=== PATIENT | male | born 1955 | race African-American/Black ===

== ENCOUNTER → 2017-12-24 | Outpatient (CLI) | payer MEDICARE ==
[~2017-12-24] MED LIST: REGADENOSON 0.4 MG/5 ML SYRINGE IV ONE
--- NOTE | 2017-12-24 11:06 | NM ---
EXAMINATION TYPE: NM stress lexiscan cardiolite DATE OF EXAM: 12/24/2017 COMPARISON: NONE HISTORY: Precordial chest pain and abnormal EKG. TECHNIQUE: After the intravenous administration of 10.12 mCi Tc 99m Sestamibi - Cardiolite resting S PECT images acquired 45 minutes post injection. The patient received 0.4mg Lexiscan, 26.9 mCi Tc 99m Sestamibi - Stress images obtained [address] injection FINDINGS: Review of stress and rest SPECT images demonstrates no distinct perfusion abnormality. Gated analysi s shows normal wall motion with an estimated left ventricular ejection fraction of 52 %. IMPRESSION: No scintigraphic evidence for reversible ischemia.
--- NOTE | 2017-12-24 19:10 | P.STRESS ---
- Stress Test Note Stress Test Results/Findings: Exam Performed: NM stress lexiscan cardiolite Exam Date: 12/24/17 Reason for Exam: Chest Pain Height: 6 ft 1 in Weight: 118.841 kg Protocol: Janeth Scan Stage: na Duration of Exercise: na Resting Heart Rate: 51 Resting Blood Pressure: 104/76 Maximum Achieved Heart Rate: 78 Maximum Achieved Blood Pressure: 121/84 85% PMHR: na 100% PMHR: na METS: na Technologist Comment: Stress Test Results/Findings: This is a 62-year-old gentleman with history of hypertension, smoking and family history being evaluated for symptoms of chest pain. Baseline EKG showed sinus rhythm with normal TX interval, QRS duration. Blood pressure at rest is 104 76 with pulse rate of 51. A standard dose of Lexiscan was infused. EKGs taken during and after infusion did not reveal any changes to suggest ischemia. Occasional PVCs were noted. Final impression: #1. Negative Lexiscan stress test #2. Reportedly per images to be given by the radiologist
--- NOTE | 2017-12-28 13:34 | EST ---
- Stress Test Note Stress Test Results/Findings: Exam Performed: NM stress lexiscan cardiolite Exam Date: 12/24/17 Reason for Exam: Chest Pain Height: 6 ft 1 in Weight: 118.841 kg Protocol: Janeth Scan Stage: na Duration of Exercise: na Resting Heart Rate: 51 Resting Blood Pressure: 104/76 Maximum Achieved Heart Rate: 78 Maximum Achieved Blood Pressure: 121/84 85% PMHR: na 100% PMHR: na METS: na Technologist Comment: Stress Test Results/Findings: This is a 62-year-old gentleman with history of hypertension, smoking and family history being evaluated for symptoms of chest pain. Baseline EKG showed sinus rhythm with normal [place] interval, QRS duration. Blood pressure at rest is 104 76 with pulse rate of 51. A standard dose of Lexiscan was infused. EKGs taken during and after infusion did not reveal any changes to suggest ischemia. Occasional PVCs were noted. Final impression: #1. Negative Lexiscan stress test #2. Reportedly per images to be given by the radiologist CANDIDOD
== END | disposition home or self-care (01) ==
LOC: RADNMMAIN 07:55
PROVIDERS: ATTEND Family Medicine
DX: R07.89 Other chest pain (principal)
CPT/HCPCS: 93017; 78452; A9500; J2785

== ENCOUNTER → 2018-01-05 | Outpatient (CLI) | payer MEDICARE ==
--- NOTE | 2018-01-05 14:09 | CTL ---
EXAMINATION TYPE: CT Low Dose Lung DATE OF EXAM ORDERED: 01/05/2018 COMPARISON: None HISTORY: . Low Dose CT Lung Screening CT DLP: 149.[address] CTDI: 3.9 mGy IV CONTRAST USED: None. SCREENING VISIT: First visit COMPARISON: None. TECHNIQUE: Low dose computed tomography scan was performed through the chest at 1 millimeter thick se ctions and reconstructed images in the coronal plane at [address] DIAGNOSTIC QUALITY: Satisfactory FINDINGS: LUNG NODULES: Not presentLeft lung: no nodules identified.Right lung: no nodules identified. LUNGS: COPD: Severity: None Fibrosis: Severity:None Lymph nodes: None Other findings: None RIGHT PLEURAL SPACE: Effusion: None Calcification: None Thickening: None Pneumothorax: None LEFT PLEURAL SPACE: Effusion: None Calcification: None Thickening: None Pneumothorax: None HEART: Heart Size: Mildly enlarged Coronary calcification: Mild Pericardial effusion: None Thoracic aorta: Ascending thoracic aorta is aneurysmal at 4.2 cm AP dimension. Mild atheromatous sahu ges seen. OTHER FINDINGS: Upper abdomen: Probable cyst dome of the liver. Bony thorax: Degenerative changes Supraclavicular region: No significant abnormalityOther: No significant abnormalityI IMPRESSION: 1. No distinct pulmonary nodules. 2. Ascending thoracic aortic aneurysm. FOLLOW UP CT CHEST RECOMMENDATION: Follow-up screening in one year CT LUNG RAD: Negative LUNG RAD CATEGORY 1
== END | disposition home or self-care (01) ==
LOC: RADCTMAIN 13:34
PROVIDERS: ATTEND Family Medicine
DX: Z12.2 Encounter for screening for malignant neoplasm of respiratory organs (principal); Z87.891 Personal history of nicotine dependence

== ENCOUNTER → 2018-06-02 | Outpatient (CLI) | payer MEDICARE ==
[2018-06-02 15:26] LABS: Potassium 4.5 mmol/L (3.5-5.1); Uric Acid 6.3 mg/dL (3.5-8.5)
== END ==
LOC: LABWHC1 14:46
PROVIDERS: ATTEND Family Medicine
DX: I10 Essential (primary) hypertension (principal); Z79.899 Other long term (current) drug therapy
CPT/HCPCS: 36415; 80051; 82565; 84520; 84550

== ENCOUNTER → 2018-10-26 | Outpatient (CLI) | payer MEDICARE ==
[2018-10-27 04:16] LABS: Anion Gap 9.5 mmol/L (4.00-12.00); Carbon Dioxide 24.5 mmol/L (21.6-31.8); Potassium 4.3 mmol/L (3.5-5.5)
[2018-10-27 05:05] LABS: Hemoglobin A1C 6.3 % (4.0-6.0)
== END | disposition home or self-care (01) ==
LOC: LABWHC1 15:35
PROVIDERS: ATTEND Family Medicine
DX: I10 Essential (primary) hypertension (principal); Z79.899 Other long term (current) drug therapy
CPT/HCPCS: 36415; 80051; 82565; 83036; 84443; 84520

== ENCOUNTER → 2019-01-17 | Outpatient (CLI) | payer MEDICARE ==
--- NOTE | 2019-01-17 14:32 | CTL ---
EXAMINATION TYPE: CT Low Dose Lung DATE OF EXAM ORDERED: 01/17/2019 HISTORY: Personal history of tobacco abuse. Lung cancer screening CT DLP: 141.[address] CTDI: 3.6 mGy Automated exposure control for dose reduction was used. SCREENING VISIT: Second COMPARISON: 01/05/2018 TECHNIQUE: Low dose computed tomography scan was performed through the chest at 1 mm thick sections a nd reconstructed images in the coronal plane at [address] DIAGNOSTIC QUALITY: Satisfactory FINDINGS: LUNG NODULES: Present, detailed below: There is a punctate 2 mm pulmonary nodule in the left lung apex laterally on series 4 image 43 that a ppears solid in nature. This is not well appreciated on the prior examination possibly due to slice s election given its very small size. No other sizable pulmonary nodules are appreciated. LUNGS: COPD: Severity: Very mild Fibrosis: Severity: None Lymph nodes: No adenopathy RIGHT PLEURAL SPACE: Effusion: None Calcification: None Thickening: None Pneumothorax: None LEFT PLEURAL SPACE: Effusion: None Calcification: None Thickening: None Pneumothorax: None HEART: Heart Size: Mildly enlarged Coronary calcification: Mild Pericardial effusion: None Aorta: Again there is mild ascending thoracic aorta aneurysmal dilatation measuring approximately 4.3 cm. OTHER FINDINGS: Upper abdomen: Right nephrectomy has been performed. Stable approximately 1.3 cm probable right hepat ic cyst. Bony thorax: Mild multilevel degenerative change Supraclavicular region: Unremarkable Other: Very small hiatal hernia. IMPRESSION: Solitary punctate left apical pulmonary nodule corresponds to a LUNG RADS 2-benign appear ance or behavior. Mild ascending thoracic aortic aneurysmal dilatation and probable stable 1.3 cm hep atic cyst are incidentally noted. FOLLOW UP CT CHEST RECOMMENDATION: Annual low dose CT is recommended. CT LUNG RAD: Lung-Rad 2 Benign Appearance or Behavior
== END ==
LOC: RADCTMAIN 13:37
PROVIDERS: ATTEND Family Medicine
DX: R91.1 Solitary pulmonary nodule (principal); Z87.891 Personal history of nicotine dependence

== ENCOUNTER → 2019-05-10 | Outpatient (CLI) | payer MEDICARE ==
[2019-05-10 12:30] LABS: Basophils % (A) 1 %; Eosinophils # (A) 0.2 k/uL (0-0.7); Eosinophils % (A) 3 %; HCT 45.5 % (39.0-53.0); HGB 14.2 gm/dL (13.0-17.5); Lymphocytes # (A) 2.9 k/uL (1.0-4.8); Lymphocytes % (A) 47 %; MCH 25.6 pg (25.0-35.0); MCHC 31.2 g/dL (31.0-37.0); MCV 81.9 fL (80.0-100.0); Monocytes # (A) 0.3 k/uL (0-1.0); Monocytes % (A) 5 %; Neutrophils # (A) 2.6 k/uL (1.3-7.7); Neutrophils % (A) 42 %; Platelet Count 306 k/uL (150-450); RBC 5.56 m/uL (4.30-5.90); RDW 15.5 % (11.5-15.5); WBC 6.2 k/uL (3.8-10.6)
[2019-05-10 12:31] LABS: Appearance,Urine Clear (Clear); Bilirubin,Urine Negative (Negative); Blood,Urine Negative (Negative); Color,Urine Yellow; Glucose,Urine (UA) Negative (Negative); Ketones,Urine Negative (Negative); Leukocyte Esterase,Urine Negative (Negative); Nitrite,Urine Negative (Negative); Protein,Urine Negative (Negative); Specific Gravity,Urine 1.018 (1.001-1.035); Urobilinogen,Urine <2.0 mg/dL (<2.0)
[2019-05-10 16:27] LABS: African American GFR (CKD) 66.8 (60.0-200.0); Albumin 4.3 g/dL (3.80-4.90); Albumin/Globulin Ratio 1.79 (1.60-3.17); Anion Gap 7.1 mmol/L (4.00-12.00); BUN/Creat Ratio 16.92 Ratio (12.00-20.00); Calcium 9.4 mg/dL (8.7-10.3); Carbon Dioxide 25.9 mmol/L (21.6-31.8); Chol/HDL Ratio 4.07; Globulin 2.4 g/dL (1.6-3.3); LDL Cholesterol,Calculated 125.8 mg/dL (0.0-131.0); Non-African American GFR(CKD) 57.7 (60.0-200.0); Potassium 4.1 mmol/L (3.5-5.5); Total Bilirubin 0.4 mg/dL (0.3-1.2); Total Protein 6.7 g/dL (6.2-8.2); VLDL Calculation 15.2 mg/dL (5.00-40.00)
[2019-05-10 19:55] LABS: Hemoglobin A1C 6.5 % (4.0-6.0)
== END | disposition home or self-care (01) ==
LOC: LABWHC1 11:49
PROVIDERS: ATTEND Family Medicine
DX: I10 Essential (primary) hypertension (principal); E55.9 Vitamin D deficiency, unspecified; Z79.899 Other long term (current) drug therapy
CPT/HCPCS: 36415; 80053; 80061; 81003; 82306; 82785; 83036; 83970; 84153; 84443; 85025

== ENCOUNTER → 2019-05-18 | Outpatient (CLI) | payer MEDICARE ==
[2019-05-18 23:30] LABS: African American GFR (CKD) 61.1 (60.0-200.0); Anion Gap 6.5 mmol/L (4.00-12.00); Carbon Dioxide 28.5 mmol/L (21.6-31.8); Potassium 4.3 mmol/L (3.5-5.5)
[2019-05-19 04:03] LABS: Hemoglobin A1C 6.5 % (4.0-6.0)
== END | disposition home or self-care (01) ==
LOC: LABWHC1 14:29
PROVIDERS: ATTEND Family Medicine
DX: E11.9 Type 2 diabetes mellitus without complications (principal); Z79.899 Other long term (current) drug therapy
CPT/HCPCS: 36415; 80051; 82565; 83036; 84520

== ENCOUNTER → 2019-07-12 | Outpatient (CLI) | payer MEDICARE ==
--- NOTE | 2019-07-13 05:50 | CT ---
EXAMINATION TYPE: CT angio chest DATE OF EXAM: 07/12/2019 COMPARISON: Low-dose CT 01/05/2018 HISTORY: 64-year-old male Thoracic aneurysm w/o mention of rupture. TECHNIQUE: Contiguous axial scanning of the chest performed without and with IV Contrast, patient inj ected with 80ml mL of Isovue 370. Coronal/sagittal MIP reconstructions performed. 3-D reconstructions generated on a dedicated independent workstation. CT DLP: 1641 mGycm Automated exposure control for dose reduction was used. FINDINGS: Heart normal size without pericardial effusion. Initial noncontrast images of the aorta show no evidence for acute intracranial hematoma. Postcontrast images show no evidence for dissection. Aortic root has motion but is estimated 4.1 cm, stable. Ascending aorta mildly aneurysmal at 4.3 cm, stable. Conventional arch vessel branching anatomy with very mild atherosclerotic arch calcifications. Upper descending thoracic aorta aneurysmal at 3.7 cm, unchanged. Descending thoracic aorta is mildly tortuous. Middescending thoracic aorta is ectatic at 2.9 cm, unchanged. Distal descending thoracic aorta borderline aneurysmal at 3.0 cm, unchanged. Scattered nonenlarged mediastinal and axillary lymph nodes. Trace bilateral gynecomastia. Minimal centrilobular emphysematous change. No consolidation or pleural effusion. Multiple hepatic cysts redemonstrated measuring up to 2.0 cm. Surgical clips in the right renal fossa from prior nephrectomy. Bones: No osseous destructive process. IMPRESSION: STABLE ANEURYSMAL THORACIC AORTA (ASCENDING 4.3 CM AND DESCENDING A 3.7 CM) COMPARED TO 01/05/2018.
== END | disposition home or self-care (01) ==
LOC: RADCTMAIN 16:23
PROVIDERS: ATTEND Thoracic Surgery (Cardiothoracic Vascular Surgery)
DX: I71.2 Thoracic aortic aneurysm, without rupture (principal)
CPT/HCPCS: 82565; 84520; 71275; 36415; Q9967

== ENCOUNTER → 2019-09-05 | Outpatient (CLI) | payer MEDICARE ==
[2019-09-05 21:14] LABS: Hemoglobin A1C 6.5 % (4.0-6.0)
[2019-09-05 21:37] LABS: African American GFR (CKD) 73.6 (60.0-200.0); Anion Gap 4.8 mmol/L (4.00-12.00); Carbon Dioxide 29.2 mmol/L (21.6-31.8); Non-African American GFR(CKD) 63.5 (60.0-200.0); Potassium 3.9 mmol/L (3.5-5.5)
== END | disposition home or self-care (01) ==
LOC: LABWHC1 11:24
PROVIDERS: ATTEND Family Medicine
DX: I10 Essential (primary) hypertension (principal); E11.9 Type 2 diabetes mellitus without complications; Z79.899 Other long term (current) drug therapy
CPT/HCPCS: 36415; 80051; 82105; 82565; 83036; 84520

== ENCOUNTER → 2020-02-21 | Outpatient (CLI) | payer MEDICARE ==
[2020-02-21 16:23] LABS: African American GFR (CKD) 60.7 (60.0-200.0); Albumin 4.3 g/dL (3.80-4.90); Albumin/Globulin Ratio 1.65 (1.60-3.17); BUN/Creat Ratio 15.71 Ratio (12.00-20.00); Calcium 9.5 mg/dL (8.7-10.3); Chol/HDL Ratio 3.43; Globulin 2.6 g/dL (1.6-3.3); LDL Cholesterol,Calculated 95.2 mg/dL (0.0-131.0); Non-African American GFR(CKD) 52.4 (60.0-200.0); Total Bilirubin 0.7 mg/dL (0.3-1.2); Total Protein 6.9 g/dL (6.2-8.2); VLDL Calculation 11.8 mg/dL (5.00-40.00)
== END | disposition home or self-care (01) ==
LOC: LABWHC1 10:56
PROVIDERS: ATTEND Family Medicine
DX: I10 Essential (primary) hypertension (principal); E11.9 Type 2 diabetes mellitus without complications
CPT/HCPCS: 36415; 80053; 80061; 83036

== ENCOUNTER → 2020-07-11 | Outpatient (CLI) | payer MEDICARE | END | disposition home or self-care (01) | LOC: RADCTMAIN 15:20 | PROVIDERS: ATTEND Thoracic Surgery (Cardiothoracic Vascular Surgery) | DX: I71.2 Thoracic aortic aneurysm, without rupture (principal) | CPT/HCPCS: 82565; 84520 ==

== ENCOUNTER → 2020-07-30 | Outpatient (CLI) | payer MEDICARE ==
--- NOTE | 2020-07-30 08:39 | CT ---
EXAMINATION TYPE: CT chest wo con DATE OF EXAM: 07/30/2020 COMPARISON: CTA chest July 12, 2019 HISTORY: Thoracic aneurysm CT DLP: 561.80 mGycm. Automated Exposure Control for Dose Reduction was Utilized. TECHNIQUE: CT scan of the thorax is performed without IV contrast. FINDINGS: LUNGS: Mild linear scarring medially left lung base redemonstrated. No suspicious focal groundglass o pacity or consolidation. No concerning nodules or masses. No pleural effusion or pneumothorax seen bi laterally. MEDIASTINUM: Lack of IV contrast is noted to limit evaluation for mediastinal and especially hilar ad enopathy. There are no definitive greater than 1 cm hilar or mediastinal lymph nodes. No cardiomega ly or pericardial effusion is seen. Ascending aorta measures up to 4.5 cm in diameter current study a xial image 29 at level of main pulmonary artery bifurcation perhaps slightly larger from prior study at 4.2 to 4.3 cm. Mild calcified plaque in the arch. Slight ectasia to the arch and proximal descendi ng aorta redemonstrated. Ectatic course noted. OTHER: Few simple appearing thin-walled cysts throughout the liver are redemonstrated. Surgical clips from right-sided nephrectomy redemonstrated. Slight scoliotic curvature on coronal images of the upp er to mid thoracic spine redemonstrated. IMPRESSION: There is 4.5 cm ascending aortic aneurysm slightly larger from 1 year ago.
== END | disposition home or self-care (01) ==
LOC: RADCTMAIN 07:26
PROVIDERS: ATTEND Family Medicine
DX: I71.2 Thoracic aortic aneurysm, without rupture (principal)
CPT/HCPCS: 71250

== ENCOUNTER → 2021-02-07 | Outpatient (CLI) | payer MEDICARE ==
[2021-02-07 18:55] LABS: Basophils # (A) 0.07 X 10*3/uL (0.00-0.10); Basophils % (A) 0.7 %; Eosinophils # (A) 0.16 X 10*3/uL (0.04-0.35); Eosinophils % (A) 1.7 %; HCT 48.5 % (39.6-50.0); HGB 15.1 g/dL (13.0-17.0); Lymphocytes # (A) 3.47 X 10*3/uL (0.90-5.00); Lymphocytes % (A) 35.9 %; MCH 25.2 pg (27.0-32.0); MCHC 31.1 g/dL (32.0-37.0); Mean Platelet Volume 11.7 fL (9.5-12.2); Monocytes # (A) 0.88 X 10*3/uL (0.20-1.00); Monocytes % (A) 9.1 %; Neutrophils # (A) 5.06 X 10*3/uL (1.80-7.70); Neutrophils % (A) 52.4 %; Platelet Count 301 X 10*3/uL (140-440); RBC 5.99 X 10*6/uL (4.40-5.60); WBC 9.66 X 10*3/uL (4.50-10.00)
[2021-02-07 23:06] LABS: African American GFR (CKD) 47.6 (60.0-200.0); Albumin 4.6 g/dL (3.80-4.90); Albumin/Globulin Ratio 1.77 (1.60-3.17); Anion Gap 10.9 mmol/L (4.00-12.00); BUN/Creat Ratio 14.12 Ratio (12.00-20.00); Calcium 9.6 mg/dL (8.7-10.3); Carbon Dioxide 24.1 mmol/L (21.6-31.8); Chol/HDL Ratio 4.5; Globulin 2.6 g/dL (1.6-3.3); LDL Cholesterol,Calculated 118.4 mg/dL (0.0-131.0); Non-African American GFR(CKD) 41.1 (60.0-200.0); Potassium 4.5 mmol/L (3.5-5.5); Total Bilirubin 0.4 mg/dL (0.2-1.2); Total Protein 7.2 g/dL (6.2-8.2); VLDL Calculation 28.6 mg/dL (5.00-40.00)
== END | disposition home or self-care (01) ==
LOC: LABWHC1 09:17
PROVIDERS: ATTEND Family Medicine
DX: E11.9 Type 2 diabetes mellitus without complications (principal); I10 Essential (primary) hypertension; Z79.899 Other long term (current) drug therapy
CPT/HCPCS: 36415; 80053; 80061; 83036; 84153; 85025

== ENCOUNTER → 2021-06-03 | Outpatient (CLI) | payer MEDICARE ==
[2021-06-03 23:00] LABS: Hemoglobin A1C 7.7 % (4.0-6.0)
[2021-06-04 01:26] LABS: African American GFR (CKD) 51.3 (60.0-200.0); Anion Gap 8.5 mmol/L (4.00-12.00); Carbon Dioxide 27.5 mmol/L (21.6-31.8); Non-African American GFR(CKD) 44.2 (60.0-200.0); Potassium 4.4 mmol/L (3.5-5.5)
== END | disposition home or self-care (01) ==
LOC: LABWHC1 13:33
PROVIDERS: ATTEND Family Medicine
DX: E11.9 Type 2 diabetes mellitus without complications (principal); I10 Essential (primary) hypertension; Z79.899 Other long term (current) drug therapy
CPT/HCPCS: 36415; 80051; 82565; 83036; 84520

== ENCOUNTER → 2022-02-19 | Outpatient (CLI) | payer MEDICARE ==
[2022-02-19 18:06] LABS: African American GFR (CKD) 59.8 (60.0-200.0); Anion Gap 10.7 mmol/L (10.00-18.00); Blood Urea Nitrogen 16.7 mg/dL (9.0-27.0); Carbon Dioxide 24.3 mmol/L (20.0-27.5); Non-African American GFR(CKD) 51.6 (60.0-200.0); Potassium 3.9 mmol/L (3.5-5.5)
== END | disposition home or self-care (01) ==
LOC: LABWHC1 11:51
PROVIDERS: ATTEND Family Medicine
DX: E11.9 Type 2 diabetes mellitus without complications (principal); I10 Essential (primary) hypertension
CPT/HCPCS: 36415; 80051; 82565; 83036; 84443; 84520

== ENCOUNTER → 2022-08-27 | Outpatient (CLI) | payer MEDICARE ==
[2022-08-27 18:28] LABS: African American GFR (CKD) 59.8 (60.0-200.0); Albumin 4.3 g/dL (3.8-4.9); Albumin/Globulin Ratio 1.3 (1.60-3.17); Anion Gap 10.8 mmol/L (10.00-18.00); BUN/Creat Ratio 11.14 Ratio (12.00-20.00); Blood Urea Nitrogen 15.6 mg/dL (9.0-27.0); Calcium 9.2 mg/dL (8.7-10.3); Carbon Dioxide 27.2 mmol/L (20.0-27.5); Globulin 3.3 g/dL (1.6-3.3); Non-African American GFR(CKD) 51.6 (60.0-200.0); Potassium 3.8 mmol/L (3.5-5.5); Prostate Specific Antigen 0.8 ng/mL (0.00-4.50); Total Bilirubin 0.2 mg/dL (0.30-1.20); Total Protein 7.6 g/dL (6.2-8.2)
[2022-08-27 19:39] LABS: Basophils # (A) 0.05 X 10*3/uL (0.00-0.10); Basophils % (A) 0.6 %; Eosinophils # (A) 0.19 X 10*3/uL (0.04-0.35); Eosinophils % (A) 2.4 %; HCT 45.2 % (39.6-50.0); HGB 14.6 g/dL (13.0-17.0); Immature Grans, Automated 0.3 %; Lymphocytes # (A) 2.91 X 10*3/uL (0.90-5.00); Lymphocytes % (A) 36.6 %; MCH 25.4 pg (27.0-32.0); MCHC 32.3 g/dL (32.0-37.0); MCV 78.6 fL (80.0-97.0); Mean Platelet Volume 10.4 fL (9.5-12.2); Monocytes # (A) 0.88 X 10*3/uL (0.20-1.00); Monocytes % (A) 11.1 %; NRBC Per 100 WBC 0 /100 WBCS (0.0-0.0); Neutrophils # (A) 3.91 X 10*3/uL (1.80-7.70); Platelet Count 270 X 10*3/uL (140-440); RBC 5.75 X 10*6/uL (4.40-5.60); RDW 18.2 % (11.5-14.5); WBC 7.96 X 10*3/uL (4.50-10.00)
== END | disposition home or self-care (01) ==
LOC: LABWHC1 14:03
PROVIDERS: ATTEND Family Medicine
DX: E11.9 Type 2 diabetes mellitus without complications (principal); Z79.899 Other long term (current) drug therapy
CPT/HCPCS: 36415; 80053; 82043; 82570; 83036; 84153; 84443; 85025

== ENCOUNTER → 2022-09-01 | Outpatient (CLI) | payer MEDICARE ==
--- NOTE | 2022-09-01 11:12 | US ---
EXAMINATION TYPE: US duplex aorta DATE OF EXAM: 09/01/2022 COMPARISON: NONE CLINICAL HISTORY: 67-year-old male I71.3 ABD AORTIC ANEURYSM. TECHNIQUE: Multiple sonographic images of the abdominal aorta are obtained. FINDINGS: EXAM MEASUREMENTS: Abdominal Aorta: Proximal: 3.1 x 2.7 cm Mid: 2.1 x 1.6 cm Distal: 1.9 x 1.9 cm Bifurcation: .6 x 1.2 cm .6 x 1.0 cm ANESTHESIOLOGY PHYSICIAN ASSISTANT NOTES: IMPRESSION: Mild aneurysm proximal abdominal aorta at 3.1 cm.
== END | disposition home or self-care (01) ==
LOC: RADUSWWP 07:14
PROVIDERS: ATTEND Family Medicine
DX: I71.30 Abdominal aortic aneurysm, ruptured, unspecified (principal)
CPT/HCPCS: 93979

== ENCOUNTER → 2023-12-21 | Outpatient (CLI) | payer MEDICARE ==
[2023-12-21 16:31] LABS: Basophils # (A) 0.06 X 10*3/uL (0.00-0.10); Basophils % (A) 0.8 %; Eosinophils # (A) 0.11 X 10*3/uL (0.04-0.35); Eosinophils % (A) 1.5 %; HCT 47.4 % (39.6-50.0); HGB 14.9 g/dL (13.0-17.0); Lymphocytes # (A) 3.26 X 10*3/uL (0.90-5.00); Lymphocytes % (A) 43.1 %; MCH 25.4 pg (27.0-32.0); MCHC 31.4 g/dL (32.0-37.0); MCV 80.7 FL (80.0-97.0); Mean Platelet Volume 10.7 FL (9.5-12.2); Monocytes # (A) 0.83 X 10*3/uL (0.20-1.00); NRBC Per 100 WBC 0 X 10*3/uL (0.00-0.01); Neutrophils # (A) 3.29 X 10*3/uL (1.80-7.70); Neutrophils % (A) 43.3 %; Platelet Count 278 X 10*3/uL (140-440); RBC 5.87 X 10*6/uL (4.40-5.60); RDW 18.1 % (11.5-14.5); WBC 7.57 X 10*3/uL (4.50-10.00)
[2023-12-21 16:54] LABS: BUN/Creat Ratio 12.62 Ratio (12.00-20.00); Blood Urea Nitrogen 16.4 mg/dL (9.0-27.0); Chol/HDL Ratio 3.49 Ratio; Glucose 121 mg/dL (70-110); LDL Cholesterol,Calculated 81.5 mg/dL (0.0-131.0); VLDL Calculation 14.14 mg/dL (5.00-40.00)
[2023-12-21 16:55] LABS: ALT 24 U/L (10-49); AST 11 U/L (14-35); Albumin 4.3 g/dL (3.8-4.9); Albumin/Globulin Ratio 1.43 Ratio (1.60-3.17); Alkaline Phosphatase 113 U/L (41-126); Calcium 9.7 mg/dL (8.7-10.3); Carbon Dioxide 27.1 mmol/L (21.6-31.8); Chloride 105 mmol/L (96-109); Potassium 4.7 mmol/L (3.5-5.5); Prostate Specific Antigen 0.76 ng/mL (0.000-4.500); Sodium 142 mmol/L (135-145); Total Bilirubin 0.3 mg/dL (0.3-1.2); Total Protein 7.3 g/dL (6.2-8.2)
== END | disposition home or self-care (01) ==
LOC: LABWHC1 08:53
PROVIDERS: ATTEND Family Medicine
DX: Z00.00 Encounter for general adult medical examination without abnormal findings (principal); I10 Essential (primary) hypertension; E11.9 Type 2 diabetes mellitus without complications; E55.9 Vitamin D deficiency, unspecified; R97.20 Elevated prostate specific antigen [PSA]; Z79.899 Other long term (current) drug therapy
CPT/HCPCS: 36415; 80053; 80061; 82043; 82306; 82570; 82784; 83036; 84153; 84443; 85025; 86140

== ENCOUNTER 2024-03-04 15:12 | Emergency (ER) | payer MEDICARE ==
--- NOTE | 2024-03-04 15:48 | ED ---
General Adult HPI - General Chief complaint: Eye Problems Stated complaint: eye issue Time Seen by Provider: 03/04/24 15:46 Source: patient Mode of arrival: ambulatory Limitations: no limitations - History of Present Illness Initial comments: Patient presents to the ED with his friend for evaluation. Patient states that he has bilateral eye redness and irritation that is getting worse. Patient states that he initially developed left eye redness and irritation about 3 weeks ago. Patient states that his PCP started him on some sort of eyedrops (patient is unsure of what type of eyedrops these were) at that time. Patient states that his eye redness became worse and spread to his right eye, so he saw an eye doctor 4 days ago. Patient states that the eye doctor started him on tobramycin/dexamethasone eyedrops, which he has been applying for the past 4 days. Patient states that his symptoms are not improving, so he has come to the ED today. Patient is complaining of having bilateral sticky eye discharge, irritation, redness and light sensitivity. Patient denies having any significant "pain". Patient denies loss of vision or visual changes, eye trauma, recent welding, foreign body sensation or known foreign body entering his eye, contact lens use, history of glaucoma or other significant eye disorders, fever or chills, headache, cough or cold symptoms, nausea or vomiting, dyspnea, dizziness, or any other symptoms or complaints. - Related Data Home Medications Medication Instructions Recorded Confirmed ALPRAZolam [Xanax] 1 mg PO DAILY PRN 12/04/22 12/04/22 Atorvastatin [Lipitor] 10 mg PO HS 12/04/22 12/04/22 Dapagliflozin Propanediol [Farxiga] 10 mg PO DAILY 12/04/22 12/04/22 Dulaglutide [Trulicity] 1.5 mg SQ TH 12/04/22 12/04/22 FLUoxetine HCL [PROzac] 20 mg PO DAILY 12/04/22 12/04/22 amLODIPine [Norvasc] 5 mg PO DAILY 12/04/22 12/04/22 hydroCHLOROthiazide [Hydrodiuril] 25 mg PO DAILY 12/04/22 12/04/22 Previous Rx's Medication Instructions Recorded Lidocaine 5% Patch [Lidoderm] 1 patch TOPICAL DAILY 15 Days #15 12/04/22 patch Moxifloxacin HCl [Moxifloxacin 1 drop BOTH EYES TID 7 Days #3 ml 03/04/24 0.5%] Allergies Allergy/AdvReac Type Severity Reaction Status Date / Time No Known Allergies Allergy Verified 12/04/22 15:14 Review of Systems ROS Statement: Those systems with pertinent positive or pertinent negative responses have been documented in the HPI. ROS Other: All systems not noted in ROS Statement are negative. Past Medical History Past Medical History: Diabetes Mellitus, Hypertension Additional Past Surgical History / Comment(s): Kidney Past Psychological History: No Psychological Hx Reported Smoking Status: Current every day smoker Past Alcohol Use History: Occasional Past Drug Use History: Marijuana General Exam Limitations: no limitations General appearance: alert, in no apparent distress Head exam: Present: atraumatic, normocephalic Eye exam: Present: PERRL, EOMI, other (Bilateral conjunctival injection; right eye visual acuity 20/50, left eye visual acuity 20/40; no corneal fluorescein uptake or foreign body is noted on Frost lamp examination). Absent: periorbital swelling, periorbital tenderness ENT exam: Present: normal oropharynx Respiratory exam: Present: normal lung sounds bilaterally. Absent: respiratory distress, wheezes, rales, rhonchi, stridor Cardiovascular Exam: Present: regular rate, normal rhythm, normal heart sounds Neurological exam: Present: alert, oriented X3 Psychiatric exam: Present: normal affect Skin exam: Present: warm, dry, normal color Course Vital Signs 03/04/24 15:14 Temperature 98.1 F Pulse Rate 69 Respiratory 18 Rate Blood Pressure 148/91 O2 Sat by Pulse 96 Oximetry Medical Decision Making - Medical Decision Making Was pt. sent in by a medical professional or institution (, PA, [employer], urgent care, hospital, or prison...) When possible be specific @ -No Did you speak to anyone other than the patient for history (EMS, parent, family, police, friend...)? What history was obtained from this source @ -No Did you review nursing and triage notes (agree or disagree)? Why? @ -I reviewed and agree with nursing and triage notes Were old charts reviewed (outside hosp., previous admission, EMS record, old EKG, old radiological studies, urgent care reports/EKG's, prison records)? Report findings @ -No old charts were reviewed Differential Diagnosis (chest pain, altered mental status, abdominal pain women, abdominal pain men, vaginal bleeding, weakness, fever, dyspnea, syncope, headache, dizziness, GI bleed, back pain, seizure, CVA, palpatations, mental health, musculoskeletal)? @ -Conjunctivitis, keratitis, iritis, eye foreign body, scleritis, uveitis, eye disease EKG interpreted by me (3pts min.). @ -None done X-rays interpreted by me (1pt min.). @ -None done CT interpreted by me (1pt min.). @ -None done U/S interpreted by me (1pt. min.). @ -None done What testing was considered but not performed or refused? (CT, X-rays, U/S, labs)? Why? @ -None What meds were considered but not given or refused? Why? @ -None Did you discuss the management of the patient with other professionals (professionals i.e. , PA, [employer], lab, RT, psych nurse, social sciences department chair, corporate lawyer, teacher, chief lending officer, returned case inspector)? Give summary @ -No Was smoking cessation discussed for >3mins.? @ -No Was critical care preformed (if so, how long)? @ -No Were there social determinants of health that impacted care today? How? (Homelessness, low income, unemployed, alcoholism, drug addiction, transportation, low edu. Level, literacy, decrease access to med. care, fdc, rehab)? @ -No Was there de-escalation of care discussed even if they declined (Discuss DNR or withdrawal of care, Hospice)? DNR status @ -No What co-morbidities impacted this encounter? (DM, HTN, Smoking, COPD, CAD, Cancer, CVA, ARF, Chemo, Hep., AIDS, mental health diagnosis, sleep apnea, morbid obesity)? @ -None Was patient admitted / discharged? Hospital course, mention meds given and route, prescriptions, significant lab abnormalities, going to OR and other pertinent info. @ -Patient is noted to have bilateral conjunctival injection and reports having bilateral sticky eye drainage. Patient has no corneal fluorescein uptake or FB noted on Frost lamp examination. Patient's exam and symptoms are most consistent with bilateral conjunctivitis. Given the patient reports taking tobramycin eyedrops for the past 4 days without improvement, I feel it would be appropriate to change the patient's antibiotics from tobramycin to moxifloxacin at this time (a prescription was provided). Patient states that he has an appointment scheduled to see his ladies attendant (Dr. Nugent) in 3 days for reevaluation. Patient was counseled about conjunctivitis and preventing spread. The patient was clearly explained return and follow-up instructions. Patient was instructed to have a low threshold for return to the emergency department should he develop significant pain, visual changes, a fever, or new or worsening symptoms. Will discharge patient home with his friend at this time. Patient feels comfortable with this plan. Undiagnosed new problem with uncertain prognosis? @ -No Drug Therapy requiring intensive monitoring for toxicity (Heparin, Nitro, Insulin, Cardizem)? @ -No Were any procedures done? @ -No Diagnosis/symptom? @ -Bilateral conjunctivitis Acute, or Chronic, or Acute on Chronic? @ -Default Uncomplicated (without systemic symptoms) or Complicated (systemic symptoms)? @ -Default Side effects of treatment? @ -No Exacerbation, Progression, or Severe Exacerbation? @ -No Poses a threat to life or bodily function? How? (Chest pain, [place], MA, pneumonia, PE, COPD, DKA, ARF, appy, cholecystitis, CVA, Diverticulitis, Homicidal, Suicidal, threat to staff... and all critical care pts) @ -No Disposition Clinical Impression: Bilateral conjunctivitis Disposition: HOME SELF-CARE Condition: Stable Instructions (If sedation given, give patient instructions): Conjunctivitis (ED) Prescriptions: Moxifloxacin HCl [Moxifloxacin 0.5%] 1 drop BOTH EYES TID 7 Days #3 ml Is patient prescribed a controlled substance at d/c from ED?: No Referrals: Davonte Mills MD [Primary Care Provider] - 1-2 days Ghassan Nugent MD [STAFF PHYSICIAN] - 1-2 days Time of Disposition: 16:25
[2024-03-04 15:50] VITALS: RESP 18; TEMP 98.1
[2024-03-04] MEDS: PROPARACAINE 0.5% OPHTH DROPS 15 ML BTL BOTH EYES STA (15:56)
[2024-03-04] MEDS: FLUORESCEIN STRIPS 1 MG STRIP BOTH EYES ONE (15:57)
[2024-03-04 17:25] VITALS: BP 142/80; PULSE 76
== END 2024-03-04 16:38 | disposition home or self-care (01) ==
LOC: EC 15:12
DX: H10.9 Unspecified conjunctivitis (principal); F17.200 Nicotine dependence, unspecified, uncomplicated; F12.90 Cannabis use, unspecified, uncomplicated
CPT/HCPCS: 99283

== ENCOUNTER 2024-03-06 14:53 | Inpatient (IN) | payer MEDICARE, OTHER ==
[2024-03-06 15:45] LABS: Basophils % (A) 1 %; Eosinophils # (A) 0.2 k/uL (0-0.7); Eosinophils % (A) 2 %; HCT 46.9 % (39.0-53.0); HGB 14.4 gm/dL (13.0-17.5); Lymphocytes # (A) 2.7 k/uL (1.0-4.8); Lymphocytes % (A) 36 %; MCH 24.7 pg (25.0-35.0); MCHC 30.8 g/dL (31.0-37.0); MCV 80.3 fL (80.0-100.0); Mean Platelet Volume 7.3; Monocytes # (A) 0.4 k/uL (0-1.0); Monocytes % (A) 6 %; Neutrophils % (A) 54 %; Platelet Count 331 k/uL (150-450); RBC 5.83 m/uL (4.30-5.90); WBC 7.5 k/uL (3.8-10.6)
--- NOTE | 2024-03-06 15:50 | ED ---
General Adult HPI - General Chief complaint: Eye Problems Stated complaint: Eye issues Time Seen by Provider: 03/06/24 15:07 Source: patient, RN notes reviewed Mode of arrival: ambulatory Limitations: no limitations - History of Present Illness Initial comments: 69 year old male presents to the emergency department for evaluation of eye issues. Patient reports that this started around 2 weeks ago. He notes that he saw his eye doctor, Dr. Kohli, around 6 days ago. He was started on Tobradex eye drops at the time. He presented to our ED following this 2 days ago with worsening symptoms. His eye drops were changed at that time. He comes in today for worsening symptoms. He reports bilateral eye pain, drainage, redness, swelling. He also admits to pain with eye movements. Admits to blurry vision. He reports that all of his symptoms are bilateral but much worse on the left. PMH includes DM, HTN. - Related Data Home Medications Medication Instructions Recorded Confirmed ALPRAZolam [Xanax] 1 mg PO HS 12/04/22 03/06/24 Atorvastatin [Lipitor] 10 mg PO DAILY 12/04/22 03/06/24 Dapagliflozin Propanediol [Farxiga] 10 mg PO DAILY 12/04/22 03/06/24 FLUoxetine HCL [PROzac] 20 mg PO HS 12/04/22 03/06/24 amLODIPine [Norvasc] 5 mg PO DAILY 12/04/22 03/06/24 hydroCHLOROthiazide [Hydrodiuril] 25 mg PO DAILY 12/04/22 03/06/24 Budesonide/Glycopyr/Formoterol 2 puff INHALATION RT-BID 03/06/24 03/06/24 [Breztri Aerosphere Inhaler] Cholecalciferol (Vitamin D3) 50 mcg PO DAILY 03/06/24 03/06/24 [Vitamin D3 (50 Mcg = 2000 Iu)] Cyanocobalamin (Vitamin B-12) 1,000 mcg PO DAILY 03/06/24 03/06/24 [Vitamin B-12] Furosemide [Lasix] 20 mg PO DAILY 03/06/24 03/06/24 Ipratropium-Albuterol Nebulize 3 ml INHALATION RT-BID 03/06/24 03/06/24 [Duoneb 0.5 mg-3 mg/3 ml Soln] Lansoprazole [Prevacid] 30 mg PO DAILY 03/06/24 03/06/24 Mirtazapine [Remeron] 15 mg PO HS 03/06/24 03/06/24 Potassium Chloride ER [K-Dur 10] 10 meq PO DAILY 03/06/24 03/06/24 Zinc Gluconate [Zinc] 50 mg PO DAILY 03/06/24 03/06/24 Allergies Allergy/AdvReac Type Severity Reaction Status Date / Time No Known Allergies Allergy Verified 03/06/24 19:03 Review of Systems ROS Statement: Those systems with pertinent positive or pertinent negative responses have been documented in the HPI. ROS Other: All systems not noted in ROS Statement are negative. Past Medical History Past Medical History: Diabetes Mellitus, Hypertension Additional Past Surgical History / Comment(s): Kidney Past Psychological History: No Psychological Hx Reported Smoking Status: Current every day smoker Past Alcohol Use History: Occasional Past Drug Use History: Marijuana General Exam Limitations: no limitations General appearance: alert, in no apparent distress Head exam: Present: atraumatic, normocephalic, normal inspection Eye exam: Present: PERRL, EOMI, conjunctival injection, other (chemosis to left eye, IOP 7 bilaterally) ENT exam: Present: normal exam, mucous membranes moist Respiratory exam: Present: normal lung sounds bilaterally. Absent: respiratory distress, wheezes, rales, rhonchi, stridor Cardiovascular Exam: Present: regular rate, normal rhythm, normal heart sounds. Absent: systolic murmur, diastolic murmur, rubs, gallop, clicks Extremities exam: Present: normal inspection, full ROM, normal capillary refill. Absent: tenderness, pedal edema, joint swelling, calf tenderness Neurological exam: Present: alert, oriented X3 Psychiatric exam: Present: normal affect, normal mood Skin exam: Present: warm, dry, intact, normal color. Absent: rash Course Vital Signs 03/06/24 03/06/24 03/06/24 14:54 18:00 19:15 Temperature 98.7 F 98.1 F 98.4 F Pulse Rate 65 78 86 Respiratory 16 18 18 Rate Blood Pressure 130/84 136/78 136/81 O2 Sat by Pulse 99 99 99 Oximetry Medical Decision Making - Medical Decision Making Was pt. sent in by a medical professional or institution (, PA, CUSTOMER EQUIPMENT ENGINEER, urgent care, hospital, or fpc...) When possible be specific @ -[No] Did you speak to anyone other than the patient for history (EMS, parent, family, police, friend...)? What history was obtained from this source @ -[No] Did you review nursing and triage notes (agree or disagree)? Why? @ -[I reviewed and agree with nursing and triage notes] Were old charts reviewed (outside hosp., previous admission, EMS record, old EKG, old radiological studies, urgent care reports/EKG's, fpc records)? Report findings @ -[No old charts were reviewed] Differential Diagnosis (chest pain, altered mental status, abdominal pain women, abdominal pain men, vaginal bleeding, weakness, fever, dyspnea, syncope, headache, dizziness, GI bleed, back pain, seizure, CVA, palpatations, mental health, musculoskeletal)? @ -[Conjunctivitis, iritis, scleritis, orbital cellulitis, preseptal cellulitis, this is not all inclusive] EKG interpreted by me (3pts min.). @ -[none] X-rays interpreted by me (1pt min.). @ -[None done] CT interpreted by me (1pt min.). @ -[CT orbits shows asymmetric mild fat stranding changes in the intraconal and extraconal fat of the left, hazy appearance around globes bilaterally] U/S interpreted by me (1pt. min.). @ -[None done] What testing was considered but not performed or refused? (CT, X-rays, U/S, labs)? Why? @ -[None] What meds were considered but not given or refused? Why? @ -[None] Did you discuss the management of the patient with other professionals (professionals i.e. , PA, CUSTOMER EQUIPMENT ENGINEER, lab, RT, psych nurse, community mental health social worker, radio station operator, teacher, precinct commanding officer, behavioral health case manager)? Give summary @ -[Case discussed with Dr. Davonte Mills who is accepting of the admission with ophthalmology and ID on consult. ] Was smoking cessation discussed for >3mins.? @ -[No] Was critical care preformed (if so, how long)? @ -[No] Were there social determinants of health that impacted care today? How? (Homelessness, low income, unemployed, alcoholism, drug addiction, transportation, low edu. Level, literacy, decrease access to med. care, nursing home, rehab)? @ -[No] Was there de-escalation of care discussed even if they declined (Discuss DNR or withdrawal of care, Hospice)? DNR status @ -[No] What co-morbidities impacted this encounter? (DM, HTN, Smoking, COPD, CAD, Cancer, CVA, ARF, Chemo, Hep., AIDS, mental health diagnosis, sleep apnea, morbid obesity)? @ -[None] Was patient admitted / discharged? Hospital course, mention meds given and route, prescriptions, significant lab abnormalities, going to OR and other pertinent info. @ -[admitted. Patient presented to the emergency department for bilateral eye issue, worse on the left. Visual acuity obtained, 20/40 on the left, 20/50 on the right. Intraocular pressure 7 bilaterally. Laboratory studies obtained which shows normal WBC, slightly elevated CRP. CT of the orbits was obtained. There are changes concerning for orbital cellulitis. Patient started on vancomycin and Zosyn. Case was discussed with Dr. Mills. Patient will be admitted with IV antibiotics, ophthalmology and infectious disease will be consulted. Patient understanding agreeable plan. Patient stable at time of admission. Case discussed with Dr. Oliva who also evaluated the patient.] Undiagnosed new problem with uncertain prognosis? @ -[No] Drug Therapy requiring intensive monitoring for toxicity (Heparin, Nitro, Insulin, Cardizem)? @ -[No] Were any procedures done? @ -[No] Diagnosis/symptom? @ -[orbital cellulitis] Acute, or Chronic, or Acute on Chronic? @ -acute Uncomplicated (without systemic symptoms) or Complicated (systemic symptoms)? @ -complicated Side effects of treatment? @ -[No] Exacerbation, Progression, or Severe Exacerbation? @ -[No] Poses a threat to life or bodily function? How? (Chest pain, [place], [place], pneumonia, PE, COPD, DKA, ARF, appy, cholecystitis, CVA, Diverticulitis, Homicidal, Suicidal, threat to staff... and all critical care pts) @ -[threat to sight] - Lab Data Result diagrams: 03/06/24 15:37 03/06/24 15:37 Lab Results 03/06/24 03/06/24 Range/Units 15:37 15:37 WBC 7.5 (3.8-10.6) k/uL RBC 5.83 (4.30-5.90) m/uL Hgb 14.4 (13.0-17.5) gm/dL Hct 46.9 (39.0-53.0) % MCV 80.3 (80.0-100.0) fL MCH 24.7 L (25.0-35.0) pg MCHC 30.8 L (31.0-37.0) g/dL RDW 16.0 H (11.5-15.5) % Plt Count 331 (150-450) k/uL MPV 7.3 Neutrophils % 54 % Lymphocytes % 36 % Monocytes % 6 % Eosinophils % 2 % Basophils % 1 % Neutrophils # 4.0 (1.3-7.7) k/uL Lymphocytes # 2.7 (1.0-4.8) k/uL Monocytes # 0.4 (0-1.0) k/uL Eosinophils # 0.2 (0-0.7) k/uL Basophils # 0.0 (0-0.2) k/uL ESR 87 H (0-20) mm/Hr Sodium 137 (137-145) mmol/L Potassium 4.6 (3.5-5.1) mmol/L Chloride 106 (98-107) mmol/L Carbon Dioxide 24 (22-30) mmol/L Anion Gap 7 mmol/L BUN 13 (9-20) mg/dL Creatinine 1.14 (0.66-1.25) mg/dL Est GFR (CKD-EPI)AfAm 76 (>60 ml/min/1.73 sqM) Est GFR (CKD-EPI)NonAf 66 (>60 ml/min/1.73 sqM) Glucose 119 H (74-99) mg/dL Calcium 8.8 (8.4-10.2) mg/dL Total Bilirubin 0.7 (0.2-1.3) mg/dL AST 26 (17-59) U/L ALT 24 (4-49) U/L Alkaline Phosphatase 107 (38-126) U/L C-Reactive Protein 4.2 H (<1.0) mg/dL Total Protein 7.3 (6.3-8.2) g/dL Albumin 3.9 (3.5-5.0) g/dL Disposition Clinical Impression: Orbital cellulitis Disposition: ADMITTED IP TO THIS HOSP Condition: Stable Is patient prescribed a controlled substance at d/c from ED?: No
[2024-03-06 15:57] LABS: ALT 24 U/L (4-49); African American GFR (CKD) 76 (>60 ml/min/1.73 sqM); Albumin 3.9 g/dL (3.5-5.0); Anion Gap 7 mmol/L; Blood Urea Nitrogen 13 mg/dL (9-20); C Reactive Protein 4.2 mg/dL (<1.0); Calcium 8.8 mg/dL (8.4-10.2); Carbon Dioxide 24 mmol/L (22-30); Chloride 106 mmol/L (98-107); Glucose 119 mg/dL (74-99); Non-African American GFR(CKD) 66 (>60 ml/min/1.73 sqM); Sodium 137 mmol/L (137-145); Total Bilirubin 0.7 mg/dL (0.2-1.3); Total Protein 7.3 g/dL (6.3-8.2)
[2024-03-06] MEDS: PROPARACAINE 0.5% OPHTH DROPS 15 ML BTL BOTH EYES STA (15:59)
[2024-03-06 16:01] LABS: AST 26 U/L (17-59); Alkaline Phosphatase 107 U/L (38-126); Potassium 4.6 mmol/L (3.5-5.1)
[2024-03-06] MEDS: FLUORESCEIN STRIPS 1 MG STRIP BOTH EYES ONE (16:27)
--- NOTE | 2024-03-06 17:57 | CT ---
EXAMINATION TYPE: CT orbits w con CT DLP: 362.8 mGycm, Automated exposure control for dose reduction was used. DATE OF EXAM: 03/06/2024 4:48 PM COMPARISON: 07/21/2010. CLINICAL INDICATION:Male, 69 years old with history of eye pain, swelling; PHH, left eye pain and swe lling TECHNIQUE: Orbits: Axial CT with coronal and sagittal reformats through the orbits. No IV or oral contrast was u tilized. Findings: Orbital Contents: * Globes: Intact mild haziness around the globes bilaterally. * Preseptal Tissues: Normal. * Intraconal Structures: Normal. * Extraconal Structures and Lacrimal Glands: There is some mild Fat stranding changes thought to be present within the left extraconal and intraconal fat series 201 image 34 and series 202 image 68 * Orbital [place]: Normal. Sella Turcica and Cavernous Sinuses: The sella turcica and cavernous sinus regions are intact and sym metric. Visualized Brain Parenchyma: Normal. Paranasal Sinuses and Surrounding Structures: The paranasal sinuses are intact. The mastoid air cells and skull base is intact. Musculoskeletal: No evidence of fracture. Other: Soft tissues are within normal limits. IMPRESSION: 1. There are some asymmetric mild fat stranding changes in the intraconal and extraconal fat on the left correlate for orbital cellulitis. 2. Additionally there is hazy appearance around the globes bilaterally, correlate with ophthalmic ex am.
[2024-03-06] MEDS ORDERED: VANCOMYCIN IV PER PHARMACY 1 EACH MISC MISCELLANE PRN (18:29)
[2024-03-06] MEDS: PIPERACILLIN-TAZOBACTAM 3.375 GM in SODIUM CHLORIDE 0.9% 100 ML IVPB STA (18:39)
[2024-03-06] MEDS ORDERED: NALOXONE 0.4 MG/ML 1 ML VIAL IV PRN (19:39)
[2024-03-06] MEDS ORDERED: MORPHINE SULFATE 4 MG/ML SYRINGE IV PRN (19:39)
[2024-03-06] MEDS: diphenhydrAMINE 50 MG/ML 1 ML VIAL IVP STA (19:57)
[2024-03-06] MEDS: METOCLOPRAMIDE 5 MG/ML 2 ML VIAL IVP STA (19:57)
[2024-03-06] MEDS: KETOROLAC 15 MG/ML 1 ML VIAL IVP STA (19:57)
[2024-03-06] MEDS: VANCOMYCIN 1,750 MG in SODIUM CHLORIDE 0.9% 500 ML 500 ML IVPB STA (20:00)
[2024-03-06] MEDS: SODIUM CHLORIDE 0.9% 1,000 ML IV SCH (20:10)
[2024-03-06] MEDS: ALPRAZolam 1 MG TAB PO SCH (21:34)
[2024-03-06] MEDS: FLUoxetine HCL 20 MG CAP PO SCH (21:34)
[2024-03-06] MEDS: MIRTAZAPINE 15 MG TAB PO SCH (21:34)
[2024-03-06 21:56] LABS: Glucose,Whole Blood 236 mg/dL (70-110)
[2024-03-06 22:35] LABS: Erythrocyte Sedimentation Rate 87 mm/Hr (0-20)
[2024-03-07] MEDS: PIPERACILLIN-TAZOBACTAM 3.375 GM in SODIUM CHLORIDE 0.9% 100 ML IVPB SCH (00:11)
--- NOTE | 2024-03-07 00:46 | HP ---
HISTORY AND PHYSICAL A 69-year-old male, came in 2 weeks ago. He saw Dr. Kohli 6 days ago. He has been on TobraDex at home and another set of eye drops and his eyes got worse with swelling around the eye. Admits to some blurry vision. We are going to get ophthalmologic consult to benefit periorbital cellulitis. HOME MEDICINES: Include, 1. mg daily. 2. Lipitor 10 daily. 3. Farxiga 10 daily. 4. Prozac 20 daily. 5. Norvasc 5 daily. 6. HydroDIURIL 25 daily. 7. Breztri 2 puffs b.i.d. 8. Vitamin D3 daily. 9. Lasix 20 daily. 10.DuoNeb q.i.d. 11.Remeron 15 at night. 12.Prevacid 30 daily. 13.K-Dur 10 mEq daily. 14.Zinc 50 daily. ALLERGIES: Negative. REVIEW OF SYSTEMS: 14-point review of systems otherwise negative. PAST MEDICAL HISTORY: Diabetes mellitus, hypertension. Current everyday smoker. Uses marijuana. PHYSICAL EXAMINATION: VITAL SIGNS: Reviewed. HEENT: Normocephalic, atraumatic. He has some redness, swelling, conjunctival irritation around his eyes with swelling and redness. LUNGS: Decreased breath sounds x4. HEART: S1, S2. EXTREMITIES: No cyanosis, clubbing, edema. NEUROLOGIC: Cranial nerves intact. PSYCH: Fair mood and affect. VITAL SIGNS: Blood pressure 130s over 70s, O2 99, temp 98.7, pulse 60s to 70s, respiratory rate 16-18. White count 7.5, hemoglobin 14.4. ASSESSMENT: Orbital cellulitis, started him on IV antibiotics. Get infectious disease consult as well as tailor women's garment alteration. Continue home IV antibiotics. Prognosis guarded. MMODL / IJN: [id number] /
[2024-03-07 06:16] LABS: Glucose,Whole Blood 90 mg/dL (70-110)
[2024-03-07] MEDS: POTASSIUM CHLORIDE ER 10 MEQ TAB.ER.PRT PO SCH (08:16)
[2024-03-07] MEDS: VANCOMYCIN 1,750 MG in SODIUM CHLORIDE 0.9% 500 ML 500 ML IVPB SCH (08:16)
[2024-03-07] MEDS: ZINC SULFATE 220 MG CAP PO SCH (08:16)
[2024-03-07] MEDS: CHOLECALCIFEROL 25 MCG (1000 IU) TABLET PO SCH (08:16)
[2024-03-07] MEDS: ATORVASTATIN 10 MG TAB PO SCH (08:16)
[2024-03-07] MEDS: PANTOPRAZOLE 40 MG TABLET PO SCH (08:16)
[2024-03-07] MEDS: CYANOCOBALAMIN 500 MCG TAB PO SCH (08:16)
[2024-03-07] MEDS: hydroCHLOROthiazide 25 MG TAB PO SCH (08:16)
[2024-03-07] MEDS: amLODIPine 5 MG TAB PO SCH (08:16)
[2024-03-07] MEDS: FUROSEMIDE 20 MG TAB PO SCH (08:17)
[2024-03-07] MEDS: DAPAGLIFLOZIN PROPANEDIOL 10 MG TABLET PO SCH (08:24)
[2024-03-07] MEDS: KETOROLAC 15 MG/ML 1 ML VIAL IVP PRN (08:25)
[2024-03-07] MEDS: SYMBICORT 160-4.5 MCG INHALER INHALATION SCH (08:50)
[2024-03-07] MEDS: IPRATROPIUM-ALBUTEROL 3 ML NEB INHALATION SCH (08:50)
[2024-03-07 10:41] LABS: Basophils # (A) 0.04 X 10*3/uL (0.00-0.10); Basophils % (A) 0.6 %; Eosinophils # (A) 0.15 X 10*3/uL (0.04-0.35); Eosinophils % (A) 2.1 %; HGB 12.8 g/dL (13.0-17.0); Lymphocytes # (A) 2.52 X 10*3/uL (0.90-5.00); Lymphocytes % (A) 35.7 %; MCH 24.8 pg (27.0-32.0); MCHC 31.2 g/dL (32.0-37.0); MCV 79.3 FL (80.0-97.0); Mean Platelet Volume 10.4 FL (9.5-12.2); Monocytes # (A) 0.79 X 10*3/uL (0.20-1.00); Monocytes % (A) 11.2 %; NRBC Per 100 WBC 0 X 10*3/uL (0.00-0.01); Neutrophils # (A) 3.54 X 10*3/uL (1.80-7.70); Neutrophils % (A) 50.3 %; Platelet Count 328 X 10*3/uL (140-440); RBC 5.17 X 10*6/uL (4.40-5.60); RDW 16.8 % (11.5-14.5); WBC 7.05 X 10*3/uL (4.50-10.00)
[2024-03-07 11:28] LABS: BUN/Creat Ratio 10.77 Ratio (12.00-20.00); Calcium 8.8 mg/dL (8.7-10.3); Chloride 104 mmol/L (96-109); Glucose 81 mg/dL (70-110); Sodium 141 mmol/L (135-145)
--- NOTE | 2024-03-07 12:11 | CT ---
EXAMINATION TYPE: CT chest wo con DATE OF EXAM: 03/07/2024 COMPARISON: 07/30/2020 HISTORY: aneurysm CT DLP: 673.60 mGycm, Automated exposure control for dose reduction was used. CONTRAST: Performed injected with 0 mL of Isovue 300. TECHNIQUE: Axial images were obtained at 5 mm thick sections. Reconstructed images are reviewed on [employer] computer in the coronal plane. FINDINGS: Portion of the thyroid visualized is normal. There is a nonspecific area of increased density in the left costophrenic angle measuring 1.0 cm. Ate lectasis, pneumonia, an underlying mass are within the differential. Follow-up is recommended. This i s a new finding from 2019. No enlarged mediastinal or hilar adenopathy is evident. There are scattered small lymph nodes within the mediastinum. The ascending aorta diameter at the level of the main pulmonary artery is 4.9 cm. P revious measurement 4.5 cm. The main pulmonary artery diameter at the bifurcation is 3.[address] sections are obtained through the upper abdomen. There is a prior right nephrectomy. IMPRESSION: 1. Small density left costophrenic angle. Atelectasis pneumonia are within the differential. Follow-u p to clearing is recommended. 2. 4.9 cm ascending thoracic aortic aneurysm. This has increased in size from comparison
[2024-03-07 12:23] LABS: Glucose,Whole Blood 112 mg/dL (70-110)
[2024-03-07] MEDS: CEFEPIME 2 GM in SODIUM CHLORIDE 0.9% 100 ML IVPB SCH (16:37)
[2024-03-07 17:28] LABS: Glucose,Whole Blood 158 mg/dL (70-110)
--- NOTE | 2024-03-07 18:22 | CA ---
Transthoracic Echo Report Name: Jared Guo Age: 69 Gender: M : 1955 Exam Date: 03/07/2024 10:34 Exam Location: [facility] Ht (in): 72 Wt (lb): 254 Ordering Physician: Davonte Mills MD Attending/Referring Phys: Sheet Metal Mechanic Miranda Lopez RDCS Procedure CPT: Indications: dyspnea Cardiac Hx: Technical Quality: Fair Contrast 1: Total Dose (mL): Contrast 2: Total Dose (mL): MEASUREMENTS (Male / Female) Normal Values 2D ECHO LV Diastolic Diameter PLAX 5.3 cm 4.2 - 5.9 / 3.9 - 5.3 cm LV Systolic Diameter PLAX 3.7 cm IVS Diastolic Thickness 1.8 cm 0.6 - 1.0 / 0.6 - 0.9 cm LVPW Diastolic Thickness 1.6 cm 0.6 - 1.0 / 0.6 - 0.9 cm LV Relative Wall Thickness 0.6 RV Internal Dim ED PLAX 4.0 cm LA Systolic Diameter LX 4.0 cm 3.0 - 4.0 / 2.7 - 3.8 cm LV Diastolic Volume MOD 4C 143.1 cm??? LV Systolic Volume MOD 4C 71.9 cm??? LV Ejection Fraction MOD 4C 49.8 % LV Cardiac Index MOD 4C 2058.5 cm???/min???m??? LV Diastolic Length 4C 10.1 cm LV Systolic Length 4C 8.7 cm LV Diastolic Volume MOD 2C 134.2 cm??? LV Systolic Volume MOD 2C 43.6 cm??? LV Ejection Fraction MOD 2C 67.5 % LV Cardiac Index MOD 2C 2618.3 cm???/min???m??? LV Diastolic Length 2C 9.1 cm LV Systolic Length 2C 7.8 cm LA Volume 46.5 cm??? 18 - 58 / 22 - 52 cm??? LA Volume Index 18.9 cm???/m??? 16 - 28 cm???/m??? M-MODE Aortic Root Diameter MM 4.7 cm MV E Point Septal Separation 0.4 cm AV Cusp Separation MM 2.1 cm DOPPLER AV Peak Velocity 171.0 cm/s AV Peak Gradient 11.7 mmHg MV Area PHT 2.8 cm??? Mitral E Point Velocity 98.6 cm/s Mitral A Point Velocity 110.2 cm/s Mitral E to A Ratio 0.9 MV Deceleration Time 273.8 ms FINDINGS Left Ventricle Left ventricular ejection fraction is estimated at 55-60 %. Left ventricular cavity size normal. Moderate concentric LVH. Normal left ventricular wall motion. Right Ventricle RV poorly visualized. Unable to estimate the right ventricular systolic pressure. Right Atrium Normal right atrial size. No right atrial thrombus or mass seen. Left Atrium Normal left atrial size. Mitral Valve Structurally normal mitral valve. No mitral stenosis, regurgitation or prolapse. Aortic Valve Trileaflet aortic valve. No aortic valve stenosis or regurgitation. Tricuspid Valve Structurally normal tricuspid valve. No tricuspid stenosis, regurgitation or prolapse. Pulmonic Valve Structurally normal pulmonic valve. No pulmonic regurgitation. Pericardium No pericardial effusion. No pleural effusion. Aorta Severe aortic dilatation at the level of the sinuses of valsalva 47 mm CONCLUSIONS Left ventricular ejection fraction is estimated at 55-60 %. Moderate concentric LVH. No significant LVOT obstruction No obvious regional wall motion abnormality No significant valvular dysfunction Dilated aortic root measuring at 4.7 cm at the sinuses of Valsalva Previewed by: Dr Marco Antonio Buchanan (Electronically Signed) Final Date: 07 Mar 2024 18:21
[2024-03-07 20:23] LABS: Glucose,Whole Blood 110 mg/dL (70-110)
[2024-03-08 06:02] LABS: Glucose,Whole Blood 108 mg/dL (70-110)
[2024-03-08] MEDS: VANCOMYCIN TROUGH DUE 1 EACH MISC MISCELLANE ONE (07:56)
[2024-03-08 08:02] LABS: African American GFR (CKD) 66 (>60 ml/min/1.73 sqM); Non-African American GFR(CKD) 57 (>60 ml/min/1.73 sqM)
--- NOTE | 2024-03-08 08:53 | P.CONS ---
History of Present Illness - Reason for Consult Consult date: 03/07/24 orbital cellulitis Requesting physician: Eugenia Hampton - Chief Complaint Bilateral eye redness and left periorbital swelling x days - History of Present Illness Patient is a 69-year-old -[place] male with a past medical history significant for diabetes mellitus hypertension sleep apnea current everyday smoker, the patient has been dealing with eye infection for almost a month and has been treated multiple medication with different eyedrops and did not have any improvement patient now presenting back to the ER complaining of bilateral ear pain drainage redness and swelling symptom has been mostly pronounced to the left eye main symptom remains to be redness swelling and drainage and did have a pain on movement of the eyeball especially the left side intensity is mild to moderate without any radiation, patient did mention improvement in his pain with antibiotic therapy since admission to the hospital, patient denies high-grade fever or any chills on presentation to the hospital patient was afebrile and no fever have recorded subsequently patient was not tachycardic hypotensive or hypoxic patient did have a white count of 7.5 creatinine is 1.3 blood culture obtained which are currently pending patient did have a head and orbit CT some asymmetric mild fat stranding changes in the intra conal and extraconal fat on the left correlate for orbital cellulitis patient was started on vancomycin and Zosyn infectious was consulted for further management of antibiotic therapy Review of Systems Positive point and negatives has been mentioned in the HPI, complete review of systems was performed and all other systems are negative Past Medical History Past Medical History: Diabetes Mellitus, Hypertension Additional Past Medical History / Comment(s): CPAP use. History of Any Multi-Drug Resistant Organisms: None Reported Additional Past Surgical History / Comment(s): Kidney Past Anesthesia/Blood Transfusion Reactions: No Reported Reaction Past Psychological History: No Psychological Hx Reported Smoking Status: Current every day smoker Past Alcohol Use History: Occasional Past Drug Use History: Marijuana - Past Family History Mother Family Medical History: Cancer (History of cervical cancer), Diabetes Mellitus Father Family Medical History: Coronary Artery Disease (CAD), Myocardial Infarction ([place]) Additional Family Medical History / Comment(s): Biological father in his 30s of a myocardial infarction Medications and Allergies Home Medications Medication Instructions Recorded Confirmed Type ALPRAZolam [Xanax] 1 mg PO HS 12/04/22 03/06/24 History Atorvastatin [Lipitor] 10 mg PO DAILY 12/04/22 03/06/24 History Dapagliflozin Propanediol [Farxiga] 10 mg PO DAILY 12/04/22 03/06/24 History FLUoxetine HCL [PROzac] 20 mg PO HS 12/04/22 03/06/24 History amLODIPine [Norvasc] 5 mg PO DAILY 12/04/22 03/06/24 History hydroCHLOROthiazide [Hydrodiuril] 25 mg PO DAILY 12/04/22 03/06/24 History Budesonide/Glycopyr/Formoterol 2 puff INHALATION RT-BID 03/06/24 03/06/24 History [Breztri Aerosphere Inhaler] Cholecalciferol (Vitamin D3) 50 mcg PO DAILY 03/06/24 03/06/24 History [Vitamin D3 (50 Mcg = 2000 Iu)] Cyanocobalamin (Vitamin B-12) 1,000 mcg PO DAILY 03/06/24 03/06/24 History [Vitamin B-12] Furosemide [Lasix] 20 mg PO DAILY 03/06/24 03/06/24 History Lansoprazole [Prevacid] 30 mg PO DAILY 03/06/24 03/06/24 History Mirtazapine [Remeron] 15 mg PO HS 03/06/24 03/06/24 History Potassium Chloride ER [K-Dur 10] 10 meq PO DAILY 03/06/24 03/06/24 History Zinc Gluconate [Zinc] 50 mg PO DAILY 03/06/24 03/06/24 History Ipratropium-Albuterol Nebulize 3 ml INHALATION RT-QID 30 Days 03/10/24 Rx [Duoneb 0.5 mg-3 mg/3 ml Soln] #120 each Amoxic-Pot Clav 875-125Mg 1 tab PO Q12HR 10 Days #20 tab 03/11/24 Rx [Augmentin 875-125] Clindamycin [Cleocin] 300 mg PO TID 10 Days #30 cap 03/11/24 Rx Doxycycline Hyclate 100 mg PO BID #20 capsule 03/11/24 Rx Erythromycin Ophth Oint [Romycin 1 applic BOTH EYES BID 10 Days #1 03/11/24 Rx Ophth Oint] each Allergies Allergy/AdvReac Type Severity Reaction Status Date / Time No Known Allergies Allergy Verified 03/06/24 19:03 Physical Exam Vitals: Vital Signs Temp Pulse Pulse Resp BP BP BP 03/07/24 09:07 58 L 03/07/24 08:51 58 L 03/07/24 07:45 98.5 F 52 L 17 132/75 03/07/24 02:51 98.6 F 61 16 138/74 03/06/24 19:15 98.4 F 86 18 136/81 03/06/24 19:05 98.3 F 52 L 15 154/89 03/06/24 18:00 98.1 F 78 18 136/78 03/06/24 14:54 98.7 F 65 16 130/84 Pulse Ox 03/07/24 09:07 03/07/24 08:51 03/07/24 07:45 99 03/07/24 02:51 98 03/06/24 19:15 99 03/06/24 19:05 100 03/06/24 18:00 99 03/06/24 14:54 99 Intake and Output 03/06/24 03/07/24 03/07/24 22:59 06:59 14:59 Intake Total 300 118 Balance 300 118 Intake: Oral 300 118 Other: Voiding Method Toilet # Voids 2 Weight 115.212 kg GENERAL DESCRIPTION: Elderly male lying in bed, no distress. No tachypnea or accessory muscle of respiration use. HEENT: Bilateral eye with erythema did have a left periorbital swelling no purulent drainage oral mucous membrane is dry. No pharyngeal erythema or thrush NECK: Trachea central, no thyromegaly. LUNGS: Unlabored breathing. Clear to auscultation anteriorly. No wheeze or crackle. HEART: S1, S2, regular rate and rhythm. No loud murmur ABDOMEN: Soft, no tenderness , guarding or rigidity, no organomegaly EXTREMITIES: No edema of feet. SKIN: No rash, no masses palpable. NEUROLOGICAL: The patient is awake, alert, oriented x3, mood and affect normal. Results CBC & Chem 7: 03/11/24 05:08 03/11/24 05:08 Labs: Abnormal Lab Results - Last 24 Hours (Table) 03/06/24 03/06/24 03/06/24 Range/Units 15:37 15:37 21:55 Hgb (13.0-17.0) g/dL MCV (80.0-97.0) FL MCH 24.7 L (25.0-35.0) pg MCHC 30.8 L (31.0-37.0) g/dL RDW 16.0 H (11.5-15.5) % ESR 87 H (0-20) mm/Hr Glucose 119 H (74-99) mg/dL POC Glucose (mg/dL) 236 H (70-110) mg/dL C-Reactive Protein 4.2 H (<1.0) mg/dL 03/07/24 Range/Units 06:20 Hgb 12.8 L (13.0-17.0) g/dL MCV 79.3 L (80.0-97.0) FL MCH 24.8 L (25.0-35.0) pg MCHC 31.2 L (31.0-37.0) g/dL RDW 16.8 H (11.5-15.5) % ESR (0-20) mm/Hr Glucose (74-99) mg/dL POC Glucose (mg/dL) (70-110) mg/dL C-Reactive Protein (<1.0) mg/dL Assessment and Plan (1) Bilateral conjunctivitis Status: Acute Code(s): H10.9 - UNSPECIFIED CONJUNCTIVITIS SNOMED Code(s): 69374542415162466 (2) Orbital cellulitis Status: Acute Code(s): H05.019 - CELLULITIS OF UNSPECIFIED ORBIT SNOMED Code(s): 265007862 Plan: 1patient presented to hospital with bilateral eye pain and swelling redness which is most remarkable in the left eye with pain on movement of the eyeball failing outpatient multiple liquid treatments with the eardrops no concern for orbital cellulitis on the basis of the CT and clinical findings 2we will continue patient on vancomycin however to decrease risk of nephrotoxicity switch Zosyn to cefepime 3await ophthalmology evaluation We will follow on clinical condition and cultures to further adjust medication if needed Thank you for this consultation we will follow the patient along with you Dictation was produced using [employer] software. please excuse any grammatical, word or spelling errors. Time with Patient: Greater than 30
[2024-03-08 12:20] LABS: Glucose,Whole Blood 158 mg/dL (70-110)
[2024-03-08 17:22] LABS: Glucose,Whole Blood 92 mg/dL (70-110)
[2024-03-08 20:28] LABS: Glucose,Whole Blood 202 mg/dL (70-110)
--- NOTE | 2024-03-08 23:30 | PN ---
PROGRESS NOTE SUBJECTIVE: Came in with orbital cellulitis, is evaluated by the Videotape Editor. He continues on IV vancomycin and cefepime for orbital cellulitis, which is improving over the last 48 hours. OBJECTIVE: VITAL SIGNS: Temp 98.9, pulse 64 to 58, respiratory rate 16 to 20, blood pressure 140 to 148/71 to 85, O2 saturation 95% to 98% on room air. CARDIOVASCULAR: S1 and S2. LUNGS: Clear. GI: Soft. ENDOCRINE: BMI is over 40. Pathologic scleral redness bilaterally. Swelling and redness of the surrounding eyelids are decreasing. ASSESSMENT: Orbital cellulitis improved. Infectious Diseases has seen him. He had orbit CT, which showed globes intact, mild haziness, mild fat stranding changes present in the left extracoronal and intraconal fat. Sinuses are okay. No evidence of fracture. Asymmetric fast draining changes for overall cellulitis, hazy appearance around the globes bilaterally correlate with ophthalmologic exam. Waiting for Ophthalmology to see him. Dr. Leyva has seen the patient per Infectious Disease. White count 7.5, creatinine 1.3. He has COPD, sleep apnea, hypertension, chronic renal disease, orbital cellulitis. Failing outpatient treatment. Await ophthalmologic exam, I do not know when they asked to come in, but wait for this. Continue with antibiotics in the interim. Prognosis guarded. MMODL / IJN: [id number] /
[2024-03-09 06:17] LABS: Glucose,Whole Blood 100 mg/dL (70-110)
[2024-03-09 06:53] LABS: ALT 14 U/L (4-49); AST 14 U/L (17-59); African American GFR (CKD) 64 (>60 ml/min/1.73 sqM); Albumin 3.4 g/dL (3.5-5.0); Albumin/Globulin Ratio 1.1; Alkaline Phosphatase 99 U/L (38-126); Anion Gap 7 mmol/L; Blood Urea Nitrogen 14 mg/dL (9-20); Calcium 8.7 mg/dL (8.4-10.2); Carbon Dioxide 25 mmol/L (22-30); Chloride 106 mmol/L (98-107); Glucose 98 mg/dL (74-99); Non-African American GFR(CKD) 55 (>60 ml/min/1.73 sqM); Potassium 3.8 mmol/L (3.5-5.1); Sodium 138 mmol/L (137-145); Total Bilirubin 0.5 mg/dL (0.2-1.3); Total Protein 6.4 g/dL (6.3-8.2)
[2024-03-09 08:29] LABS: Basophils # (A) 0.05 X 10*3/uL (0.00-0.10); Basophils % (A) 0.6 %; Eosinophils # (A) 0.18 X 10*3/uL (0.04-0.35); Eosinophils % (A) 2.3 %; HCT 39.7 % (39.6-50.0); HGB 12.4 g/dL (13.0-17.0); MCH 24.9 pg (27.0-32.0); MCHC 31.2 g/dL (32.0-37.0); MCV 79.7 FL (80.0-97.0); Mean Platelet Volume 9.7 FL (9.5-12.2); Monocytes # (A) 0.91 X 10*3/uL (0.20-1.00); Monocytes % (A) 11.5 %; NRBC Per 100 WBC 0 X 10*3/uL (0.00-0.01); Neutrophils # (A) 4.46 X 10*3/uL (1.80-7.70); Neutrophils % (A) 56.3 %; Platelet Count 315 X 10*3/uL (140-440); RBC 4.98 X 10*6/uL (4.40-5.60); RDW 16.8 % (11.5-14.5); WBC 7.92 X 10*3/uL (4.50-10.00)
[2024-03-09] MEDS: IPRATROPIUM-ALBUTEROL 3 ML NEB INHALATION SCH (09:54)
[2024-03-09 11:14] LABS: Glucose,Whole Blood 142 mg/dL (70-110)
--- NOTE | 2024-03-09 11:47 | P.GSCN ---
History of Present Illness Consult date: 03/09/24 Reason for Consult: Thoracic ascending aortic aneurysm Requesting physician: Davonte Mills History of present illness: This is a 69-year-old gentleman who follows on an outpatient basis with Dr. Davonte Mills for his primary care service. He has a past medical history significant for hypertension, hyperlipidemia, diabetes mellitus type 2, chronic kidney disease, history of cancer to his right kidney, status post nephrectomy, COPD, obstructive sleep apnea with home CPAP use, chronic ongoing tobacco dependence, obesity with a BMI of 34.4 kg/m, EtOH use drinks about 8-10 beers over the weekend, periorbital cellulitis, GERD, depression and family history of early onset coronary artery disease with his father passing away in his 30s from a myocardial infarction. The patient presented to the emergency department here at [facility] on March 06, 2024 for complaints of ongoing eye redness, itching, bilateral eye pain, drainage and swelling with complaints of blurred vision. He has been following with Dr. Kohli from ophthalmology as an outpatient. He reports his eye irritation has been present for about a month and has been using the prescribed drops from his skylights assembler. The patient reports his eyes have not improved and if anything have gotten worse over the past couple of weeks. He denies any fever, chills, nausea, vomiting, headache, trauma, double vision, shortness of breath, constipation, diarrhea, chest pain, chest pressure, palpitations, lightheadedness, presyncope or syncope. Due to the patient's presenting symptoms a CT scan orbits with contrast was completed which demonstrated some asymmetric mild fat stranding changes in the intraconal and extraconal fat on the left correlate for orbital cellulitis, and additionally it showed a hazy appearance around the globes bilaterally. The patient also had blood cultures drawn which show no growth after 24 hours. In itial laboratory results showed a WBC count of 7.5, hemoglobin 14.4, hematocrit 46.9, platelets 331, sed rate of 87, sodium 137, potassium 4.6, BUN 13, creatinine 1.14, glucose 119, calcium 8.8, and C-reactive protein 4.2. On March 07, 2024 the patient underwent a transthoracic 2D echocardiogram which demonstrated left ventricular ejection fraction estimated at 55 to 60%, moderate concentric left ventricular hypertrophy, no mitral valve stenosis or regurgitation or prolapse, no aortic valve stenosis or regurgitation, no tricuspid valve stenosis or regurgitation or prolapse, no pericardial effusion, although did demonstrate severe aortic dilatation at the level of the sinus of Valsalva 47 mm. Subsequently due to the findings on the transthoracic 2D echocardiogram the patient underwent a CT scan of the chest without contrast which revealed a small density left costophrenic angle, atelectasis and pneumonia are within the differential, and a 4.9 cm ascending thoracic aortic aneurysm which had increased in size from comparison to a previous CT scan of the chest completed in July 2020. Due to the findings on the transthoracic 2D echocardiogram and CT scan of the chest without contrast a consult was placed to Dr. Patricio Kaminski from cardiothoracic surgery for further evaluation and tr eatment recommendations. Review of Systems A review of systems was completed and was negative except as mentioned in the HPI. Past Medical History Past Medical History: Asthma, Cancer (Cancer to his right kidney, status post right nephrectomy), COPD, Diabetes Mellitus, Eye Disorder (Swelling redness and drainage to his bilateral eyes for over a month.), GERD/Reflux, Hyperlipidemia, Hypertension, Renal Disease, Sleep Apnea/CPAP/BIPAP Additional Past Medical History / Comment(s): CPAP use. History of Any Multi-Drug Resistant Organisms: None Reported Additional Past Surgical History / Comment(s): History of right nephrectomy, cancer right kidney Past Anesthesia/Blood Transfusion Reactions: No Reported Reaction Past Psychological History: Anxiety, Depression Smoking Status: Current every day smoker Past Alcohol Use History: Occasional (Drinks 8-10 beers on the weekends.) Past Drug Use History: None Reported Additional Drug Use History / Comment(s): Reports he used to use marijuana at night to help him sleep - Past Family History Mother Family Medical History: Cancer (History of cervical cancer), Diabetes Mellitus Father Family Medical History: Coronary Artery Disease (CAD), Myocardial Infarction ([place]) Additional Family Medical History / Comment(s): Biological father in his 3 0s of a myocardial infarction Medications and Allergies Home Medications Medication Instructions Recorded Confirmed Type ALPRAZolam [Xanax] 1 mg PO HS 12/04/22 03/06/24 History Atorvastatin [Lipitor] 10 mg PO DAILY 12/04/22 03/06/24 History Dapagliflozin Propanediol [Farxiga] 10 mg PO DAILY 12/04/22 03/06/24 History FLUoxetine HCL [PROzac] 20 mg PO HS 12/04/22 03/06/24 History amLODIPine [Norvasc] 5 mg PO DAILY 12/04/22 03/06/24 History hydroCHLOROthiazide [Hydrodiuril] 25 mg PO DAILY 12/04/22 03/06/24 History Budesonide/Glycopyr/Formoterol 2 puff INHALATION RT-BID 03/06/24 03/06/24 History [Breztri Aerosphere Inhaler] Cholecalciferol (Vitamin D3) 50 mcg PO DAILY 03/06/24 03/06/24 History [Vitamin D3 (50 Mcg = 2000 Iu)] Cyanocobalamin (Vitamin B-12) 1,000 mcg PO DAILY 03/06/24 03/06/24 History [Vitamin B-12] Furosemide [Lasix] 20 mg PO DAILY 03/06/24 03/06/24 History Ipratropium-Albuterol Nebulize 3 ml INHALATION RT-BID 03/06/24 03/06/24 History [Duoneb 0.5 mg-3 mg/3 ml Soln] Lansoprazole [Prevacid] 30 mg PO DAILY 03/06/24 03/06/24 History Mirtazapine [Remeron] 15 mg PO HS 03/06/24 03/06/24 History Potassium Chloride ER [K-Dur 10] 10 meq PO DAILY 03/06/24 03/06/24 History Zinc Gluconate [Zinc] 50 mg PO DAILY 03/06/24 03/06/24 History Allergies Allergy/AdvReac Type Severity Reaction Status Date / Time No Known Allergies Allergy Verified 03/06/24 19:03 Surgical - Exam Vital Signs Temp Pulse Resp BP Pulse Ox 98.7 F 65 16 130/84 99 03/06/24 14:54 03/06/24 14:54 03/06/24 14:54 03/06/24 14:54 03/06/24 14:54 - General well developed, well nourished, no distress, no pain, obese - Eyes Redness to his bilateral eyes with clear drainage, some periorbital edema to his left eye greater than right eye. Sensitive to light. PERRL, normal ocular movement, no pale - ENT normal pinna, normal nares, normal mucosa, no hearing loss, no congestion - Neck Neck is supple, no JVD. no masses, no bruits, trachea midline, no venous distension - Respiratory Lung sounds essentially clear throughout. No wheezes, rhonchi or crackles. Respirations are symmetrical and nonlabored. - Cardiovascular Regular rhythm and rate. S1 and S2 present, negative for S3, gallop or murmur. No edema present. - Abdomen Abdomen is soft, nontender and nondistended. Active bowel sounds present all 4 abdominal quadrants. No guarding or rigidity. No organomegaly appreciated. - Genitourinary Deferred - Rectum Deferred - Integumentary Skin is warm and dry. No clubbing or cyanosis is present. no rash, no growths, no abnormal pigmentation - Neurologic No focal deficits. normal coordination, normal sensation - Musculoskeletal Equal strength bilateral. Moves all 4 extremities. normal gait, normal posture - Psychiatric oriented to time, oriented to person, oriented to place, speech is normal, memory intact Results - Labs 03/09/24 06:09 03/09/24 06:09 Abnormal Lab Results - Last 24 Hours (Table) 03/08/24 03/08/24 03/09/24 Range/Units 12:19 20:26 06:09 Hgb (13.0-17.0) g/dL MCV (80.0-97.0) FL MCH (27.0-32.0) pg MCHC (32.0-37.0) g/dL RDW (11.5-14.5) % Creatinine 1.32 H (0.66-1.25) mg/dL POC Glucose (mg/dL) 158 H 202 H (70-110) mg/dL AST 14 L (17-59) U/L Albumin 3.4 L (3.5-5.0) g/dL 03/09/24 Range/Units 06:09 Hgb 12.4 L (13.0-17.0) g/dL MCV 79.7 L (80.0-97.0) FL MCH 24.9 L (27.0-32.0) pg MCHC 31.2 L (32.0-37.0) g/dL RDW 16.8 H (11.5-14.5) % Creatinine (0.66-1.25) mg/dL POC Glucose (mg/dL) (70-110) mg/dL AST (17-59) U/L Albumin (3.5-5.0) g/dL Microbiology - Last 24 Hours (Table) 03/06/24 19:12 Blood Culture - Preliminary Blood 03/06/24 18:53 Blood Culture - Preliminary Blood Diabetes panel 03/09/24 Range/Units 06:09 Sodium 138 (137-145) mmol/L Potassium 3.8 (3.5-5.1) mmol/L Chloride 106 (98-107) mmol/L Carbon Dioxide 25 (22-30) mmol/L BUN 14 (9-20) mg/dL Creatinine 1.32 H (0.66-1.25) mg/dL Glucose 98 (74-99) mg/dL Calcium 8.7 (8.4-10.2) mg/dL AST 14 L (17-59) U/L ALT 14 (4-49) U/L Alkaline Phosphatase 99 (38-126) U/L Total Protein 6.4 (6.3-8.2) g/dL Albumin 3.4 L (3.5-5.0) g/dL Calcium panel 03/09/24 Range/Units 06:09 Calcium 8.7 (8.4-10.2) mg/dL Albumin 3.4 L (3.5-5.0) g/dL Pituitary panel 03/09/24 Range/Units 06:09 Sodium 138 (137-145) mmol/L Potassium 3.8 (3.5-5.1) mmol/L Chloride 106 (98-107) mmol/L Carbon Dioxide 25 (22-30) mmol/L BUN 14 (9-20) mg/dL Creatinine 1.32 H (0.66-1.25) mg/dL Glucose 98 (74-99) mg/dL Calcium 8.7 (8.4-10.2) mg/dL Adrenal panel 03/09/24 Range/Units 06:09 Sodium 138 (137-145) mmol/L Potassium 3.8 (3.5-5.1) mmol/L Chloride 106 (98-107) mmol/L Carbon Dioxide 25 (22-30) mmol/L BUN 14 (9-20) mg/dL Creatinine 1.32 H (0.66-1.25) mg/dL Glucose 98 (74-99) mg/dL Calcium 8.7 (8.4-10.2) mg/dL Total Bilirubin 0.5 (0.2-1.3) mg/dL AST 14 L (17-59) U/L ALT 14 (4-49) U/L Alkaline Phosphatase 99 (38-126) U/L Total Protein 6.4 (6.3-8.2) g/dL Albumin 3.4 L (3.5-5.0) g/dL - Imaging CT scan - chest: report reviewed, image reviewed Additional studies: Transthoracic 2D echocardiogram results reviewed. Assessment and Plan Assessment: 4.9 cm ascending thoracic aortic aneurysm CT scan of the chest without contrast Periorbital cellulitis, redness, itching, drainage to his bilateral eyes Hypertension Hyperlipidemia Diabetes mellitus type 2 Chronic kidney disease History of cancer to his right kidney, status post nephrectomy COPD Obstructive sleep apnea with home CPAP use Chronic ongoing tobacco dependence Obesity with a BMI of 34.4 kg/m EtOH use, drinks 8-10 beers over the weekends GERD Depression History of anxiety Family history of early onset coronary artery disease with his dad passing away in his early 30s from myocardial infarction Remote history of marijuana use ADDENDUM: CT scans reviewed. Current CT done without IV contrast. Therefore, comparison with the old CT which was done with contrast is less than 100% ideal however, there does appear to be some mild progression of the size of the ane urysm from July 2019 to present. Aneurysm remains below the level at which elective repair would be indicated. Recommendation is for repeat CTA in 1 year with cardiothoracic surgical follow- up at that time. In the interim, the patient should be placed on beta-favian therapy. Strict blood pressure control should be a high priority, the patient is currently hypertensive. Smoking cessation is also indicated. Most physical activity should be allowed but he should be restricted from performing physical activity that requires a strain. Thank you Dr. Mills for this consultation. Patient was seen and examined. His CAT scans were reviewed. I had a long discussion with him concerning by recommendations. Time spent on this consultation was 46 minutes. Plan: The patient was seen and examined at his bedside on the 6 floor cardiac observation unit. His chart and diagnostics were reviewed. His case was discussed in detail with Dr. Patricio Kaminski from cardiothoracic surgery. No surgical intervention is warranted at this time. Recommend tight blood pressure control and serial CT scans to monitor his ascending aortic aneurysm. Encourage sensation of smoking, which was discussed with the patient. Medical management other comorbidities per primary care service. He will be scheduled an outpatient follow-up appointment with Dr. Kaminski. Thank you Dr. Mills for this consult and we look forward with following you in the care of this patient. I have personally seen and examined the patient, performed the documentation and the assessment and plan as written. Number of minutes spent on the visit: 30. BRONWYN Brewer
--- NOTE | 2024-03-09 15:25 | P.PN ---
Subjective Progress Note Date: 03/08/24 Principal diagnosis: Reason for follow-up is bilateral conjunctivitis and left orbital cellulitis Patient is a 69-year-old -Mongolian male with a past medical history significant for diabetes mellitus hypertension sleep apnea current everyday smoker, the patient has been dealing with eye infection for almost a month and has been treated with multiple eyedrops presented to hospital worsening swelling and redness to bilateral eyes especially on the left side patient did have a CT suggestive of orbital cellulitis. On today's evaluation that is 03/08/2024,the patient denies any fever or any chills, patient is breathing comfortably on room air, the patient denies chest pain shortness of breath and no significant cough, patient denies abdominal pain, no nausea vomiting or diarrhea. Patient discomfort and swelling to the eyes has decreased Patient white count is 7.05 as of yesterday no CBC was done today creatinine is 1.27 Objective - Vital Signs Vital signs: Vital Signs Temp 98.4 F 03/09/24 07:29 Pulse 58 L 03/09/24 12:31 Resp 17 03/09/24 07:29 BP 134/80 03/09/24 07:29 Pulse Ox 98 03/09/24 07:29 FiO2 Intake & Output 03/08/24 03/09/24 03/09/24 18:59 06:59 18:59 Intake Total 118 Balance 118 Intake: Oral 118 Other: Voiding Method Toilet Toilet # Voids 3 3 - Exam GENERAL DESCRIPTION: An elderly male lying in bed in no distress HEENT: Bilateral conjunctival redness left periorbital swelling slightly decreased RESPIRATORY SYSTEM: Unlabored breathing , decreased breath sounds at bases HEART: S1 S2 regular rate and rhythm , ABDOMEN: Soft , no tenderness EXTREMITIES: No edema feet - Labs CBC & Chem 7: 03/09/24 06:09 03/09/24 06:09 Labs: Abnormal Lab Results - Last 24 Hours (Table) 03/08/24 03/09/24 03/09/24 Range/Units 20:26 06:09 06:09 Hgb 12.4 L (13.0-17.0) g/dL MCV 79.7 L (80.0-97.0) FL MCH 24.9 L (27.0-32.0) pg MCHC 31.2 L (32.0-37.0) g/dL RDW 16.8 H (11.5-14.5) % Creatinine 1.32 H (0.66-1.25) mg/dL POC Glucose (mg/dL) 202 H (70-110) mg/dL AST 14 L (17-59) U/L Albumin 3.4 L (3.5-5.0) g/dL 03/09/24 Range/Units 11:12 Hgb (13.0-17.0) g/dL MCV (80.0-97.0) FL MCH (27.0-32.0) pg MCHC (32.0-37.0) g/dL RDW (11.5-14.5) % Creatinine (0.66-1.25) mg/dL POC Glucose (mg/dL) 142 H (70-110) mg/dL AST (17-59) U/L Albumin (3.5-5.0) g/dL Microbiology - Last 24 Hours (Table) 03/06/24 19:12 Blood Culture - Preliminary Blood 03/06/24 18:53 Blood Culture - Preliminary Blood Assessment and Plan (1) Orbital cellulitis Current Visit: Yes Status: Acute Code(s): H05.019 - CELLULITIS OF UNSPECIFIED ORBIT SNOMED Code(s): 105591653 (2) Bilateral conjunctivitis Current Visit: No Status: Acute Code(s): H10.9 - UNSPECIFIED CONJUNCTIVITIS SNOMED Code(s): 44478113515659887 Plan: 1patient presented to hospital with bilateral eye pain and swelling redness which is most remarkable in the left eye with pain on movement of the eyeball failing outpatient multiple liquid treatments with the eardrops no concern for orbital cellulitis on the basis of the CT and clinical findings 2patient did have some clinical improvement and we will continue on the patient on vancomycin and cefepime while waiting for the culture to finalize 3await ophthalmology evaluation Dictation was produced using [employer] dictation software. please excuse any grammatical, word or spelling errors. Time with Patient: Less than 30
--- NOTE | 2024-03-09 15:26 | P.PN ---
Subjective Progress Note Date: 03/09/24 Principal diagnosis: Reason for follow-up is bilateral conjunctivitis and left orbital cellulitis Patient is a 69-year-old -Congolese male with a past medical history significant for diabetes mellitus hypertension sleep apnea current everyday smoker, the patient has been dealing with eye infection for almost a month and has been treated with multiple eyedrops presented to hospital worsening swelling and redness to bilateral eyes especially on the left side patient did have a CT suggestive of orbital cellulitis. On today's evaluation that is 03/09/2024,the patient remains to be afebrile, patient is on room air not requiring supplemental oxygen and denies any shortne ss of breath no chest pain or cough.Patient denies having any nausea or vomiting, no abdominal pain and no diarrhea has been reported, the patient left periorbital swelling has improved still have erythema to bilateral conjunctiva anemia but no purulent drainage. Patient white count is 7.92, creatinine is 1.32 Vanco trough is 15.9 blood cultures pending Objective - Vital Signs Vital signs: Vital Signs Temp 98.4 F 03/09/24 07:29 Pulse 58 L 03/09/24 12:31 Resp 17 03/09/24 07:29 BP 134/80 03/09/24 07:29 Pulse Ox 98 03/09/24 07:29 FiO2 Intake & Output 03/08/24 03/09/24 03/09/24 18:59 06:59 18:59 Intake Total 118 Balance 118 Intake: Oral 118 Other: Voiding Method Toilet Toilet # Voids 3 3 - Exam GENERAL DESCRIPTION: An elderly male lying in bed in no distress HEENT: Bilateral conjunctival redness left periorbital swelling has decreased in intensity RESPIRATORY SYSTEM: Unlabored breathing , decreased breath sounds at bases HEART: S1 S2 regular rate and rhythm , ABDOMEN: Soft , no tenderness EXTREMITIES: No edema feet - Labs CBC & Chem 7: 03/09/24 06:09 03/09/24 06:09 Labs: Abnormal Lab Results - Last 24 Hours (Table) 03/08/24 03/09/24 03/09/24 Range/Units 20:26 06:09 06:09 Hgb 12.4 L (13.0-17.0) g/dL MCV 79.7 L (80.0-97.0) FL MCH 24.9 L (27.0-32.0) pg MCHC 31.2 L (32.0-37.0) g/dL RDW 16.8 H (11.5-14.5) % Creatinine 1.32 H (0.66-1.25) mg/dL POC Glucose (mg/dL) 202 H (70-110) mg/dL AST 14 L (17-59) U/L Albumin 3.4 L (3.5-5.0) g/dL 03/09/24 Range/Units 11:12 Hgb (13.0-17.0) g/dL MCV (80.0-97.0) FL MCH (27.0-32.0) pg MCHC (32.0-37.0) g/dL RDW (11.5-14.5) % Creatinine (0.66-1.25) mg/dL POC Glucose (mg/dL) 142 H (70-110) mg/dL AST (17-59) U/L Albumin (3.5-5.0) g/dL Microbiology - Last 24 Hours (Table) 03/06/24 19:12 Blood Culture - Preliminary Blood 03/06/24 18:53 Blood Culture - Preliminary Blood Assessment and Plan (1) Orbital cellulitis Current Visit: Yes Status: Acute Code(s): H05.019 - CELLULITIS OF UNSPECIFIED ORBIT SNOMED Code(s): 907578552 (2) Bilateral conjunctivitis Current Visit: No Status: Acute Code(s): H10.9 - UNSPECIFIED CONJUNCTIVITIS SNOMED Code(s): 87067309813182669 Plan: 1patient presented to hospital with bilateral eye pain and swelling redness which is most remarkable in the left eye with pain on movement of the eyeball failing outpatient multiple liquid treatments with the eardrops no concern for orbital cellulitis on the basis of the CT and clinical findings 2patient did have some clinical improvement and plan to continue for IV Vanco and cefepime for the 24 to 48 hours before transition to oral Dictation was produced using [employer] dictation software. please excuse any grammatical, word or spelling errors. Time with Patient: Less than 30
[2024-03-09 17:32] LABS: Glucose,Whole Blood 154 mg/dL (70-110)
[2024-03-09 20:15] LABS: Glucose,Whole Blood 174 mg/dL (70-110)
[2024-03-10] MEDS: HYDROmorphone 0.5 MG/0.5 ML SYRINGE IVP PRN (04:25)
[2024-03-10 06:02] LABS: Glucose,Whole Blood 115 mg/dL (70-110)
[2024-03-10] MEDS: VANCOMYCIN TROUGH DUE 1 EACH MISC MISCELLANE ONE (08:12)
[2024-03-10 12:48] LABS: Glucose,Whole Blood 100 mg/dL (70-110)
--- NOTE | 2024-03-10 16:28 | P.PN ---
Subjective Progress Note Date: 03/10/24 Principal diagnosis: Reason for follow-up is bilateral conjunctivitis and left orbital cellulitis Patient is a 69-year-old -Lebanese male with a past medical history significant for diabetes mellitus hypertension sleep apnea current everyday smoker, the patient has been dealing with eye infection for almost a month and has been treated with multiple eyedrops presented to hospital worsening swelling and redness to bilateral eyes especially on the left side patient did have a CT suggestive of orbital cellulitis. On today's evaluation that is 03/10/2024, the patient continues to be afebrile, the patient is on room air and breathing comfortably, the Pt denies having any chest pain or cough, the patient denies having any abdominal pain no vomiting or any diarrhea, still complain of some blurriness of the vision however overall left periorbital swelling has improved no drainage. Patient did have vancomycin trough of 19.7 Objective - Vital Signs Vital signs: Vital Signs Temp 98.7 F 03/10/24 07:47 Pulse 66 03/10/24 07:47 Resp 16 03/10/24 07:47 BP 146/79 03/10/24 07:47 Pulse Ox 98 03/10/24 07:47 FiO2 Intake & Output 03/09/24 03/10/24 03/10/24 18:59 06:59 18:59 Intake Total 1200 240 236 Balance 1200 240 236 Intake: Intake, IV Titration 1200 Amount Cefepime 2 gm In Sodium 100 Chloride 0.9% 100 ml @ 25 mls/hr IVPB Q12H [facility] Rx# :[id number] Sodium Chloride 0.9% 1, 600 000 ml @ 75 mls/hr IV . [id number] [facility] Rx#:[id number] Vancomycin 1,750 mg In 500 Sodium Chloride 0.9% 500 ml 500 ml @ 167 mls/hr IVPB Q12H [facility] Rx#: [id number] Oral 240 236 Other: Voiding Method Toilet # Voids 1 - Exam GENERAL DESCRIPTION: An elderly male lying in bed in no distress HEENT: Bilateral conjunctival redness left periorbital swelling has decreased in intensity RESPIRATORY SYSTEM: Unlabored breathing , decreased breath sounds at bases HEART: S1 S2 regular rate and rhythm , ABDOMEN: Soft , no tenderness EXTREMITIES: No edema feet - Labs CBC & Chem 7: 03/09/24 06:09 03/09/24 06:09 Labs: Abnormal Lab Results - Last 24 Hours (Table) 03/09/24 03/09/24 03/10/24 Range/Units 17:30 20:11 05:55 POC Glucose (mg/dL) 154 H 174 H 115 H (70-110) mg/dL Microbiology - Last 24 Hours (Table) 03/06/24 19:12 Blood Culture - Preliminary Blood 03/06/24 18:53 Blood Culture - Preliminary Blood Assessment and Plan (1) Orbital cellulitis Current Visit: Yes Status: Acute Code(s): H05.019 - CELLULITIS OF UNSPECIFIED ORBIT SNOMED Code(s): 659834065 (2) Bilateral conjunctivitis Current Visit: No Status: Acute Code(s): H10.9 - UNSPECIFIED CONJUNCTIVITIS SNOMED Code(s): 12554654829917976 Plan: 1patient presented to hospital with bilateral eye pain and swelling redness which is most remarkable in the left eye with pain on movement of the eyeball failing outpatient multiple liquid treatments with the eardrops no concern for orbital cellulitis on the basis of the CT and clinical findings 2patient did have some clinical improvement patient to continue for IV Vanco and cefepime for the 24 hours before transition to oral, still waiting for ophthalmology evaluation Dictation was produced using [employer] dictation software. please excuse any grammatical, word or spelling errors. Time with Patient: Less than 30
[2024-03-10 17:13] LABS: Glucose,Whole Blood 134 mg/dL (70-110)
[2024-03-10 20:57] LABS: Glucose,Whole Blood 139 mg/dL (70-110)
[2024-03-10] MEDS: ERYTHROMYCIN 5 MG/GM OPHTH OINT 3.5 GM TUBE BOTH EYES SCH (22:21)
[2024-03-10] MEDS: VANCOMYCIN 1,750 MG in SODIUM CHLORIDE 0.9% 500 ML 500 ML IVPB SCH (23:53)
--- NOTE | 2024-03-11 05:35 | PN ---
PROGRESS NOTE DATE OF SERVICE: 03/09/2024 SUBJECTIVE: This is a 69-year-old -[place] male with periorbital cellulitis, waiting for Dr. Leyva to give discharge recommendations for antibiotics. He wants to go home tomorrow. OBJECTIVE: CARDIOVASCULAR: S1, S2. LUNGS: Clear, transmitted upper sounds. GI: Soft. MUSCULOSKELETAL: Range of motion full x4. HEMATOLOGY: Negative for Homans. ASSESSMENT: Orbital cellulitis, improved. Scleral redness in his eyes is pronounced over the whites of his eyes. Continue current treatment. PROGNOSIS: Guarded. Switch to oral antibiotics. Discharge home tomorrow as he improves. MMODL / IJN: [id number] /
[2024-03-11 05:57] LABS: Glucose,Whole Blood 115 mg/dL (70-110)
[2024-03-11 07:36] VITALS: BP 152/81; RESP 16; TEMP 98.2
[2024-03-11 09:47] LABS: Basophils # (A) 0.06 X 10*3/uL (0.00-0.10); Basophils % (A) 0.8 %; Eosinophils # (A) 0.21 X 10*3/uL (0.04-0.35); Eosinophils % (A) 2.8 %; HCT 39.1 % (39.6-50.0); HGB 12.4 g/dL (13.0-17.0); Lymphocytes # (A) 2.12 X 10*3/uL (0.90-5.00); Lymphocytes % (A) 28.5 %; MCH 24.9 pg (27.0-32.0); MCHC 31.7 g/dL (32.0-37.0); MCV 78.7 FL (80.0-97.0); Mean Platelet Volume 9.9 FL (9.5-12.2); Monocytes # (A) 0.88 X 10*3/uL (0.20-1.00); Monocytes % (A) 11.8 %; NRBC Per 100 WBC 0 X 10*3/uL (0.00-0.01); Neutrophils # (A) 4.16 X 10*3/uL (1.80-7.70); Neutrophils % (A) 55.8 %; Platelet Count 321 X 10*3/uL (140-440); RBC 4.97 X 10*6/uL (4.40-5.60); RDW 16.5 % (11.5-14.5); WBC 7.45 X 10*3/uL (4.50-10.00)
[2024-03-11 10:04] LABS: BUN/Creat Ratio 9.15 Ratio (12.00-20.00); Blood Urea Nitrogen 11.9 mg/dL (9.0-27.0); Carbon Dioxide 24.7 mmol/L (21.6-31.8); Chloride 102 mmol/L (96-109); Glucose 103 mg/dL (70-110); Potassium 4.2 mmol/L (3.5-5.5); Sodium 139 mmol/L (135-145)
--- NOTE | 2024-03-11 10:26 | CONS ---
CONSULTATION OPHTHALMOLOGY CONSULTATION REPORT HISTORY OF PRESENT ILLNESS: Mr. Guo is a 69-year-old male, who had seen his forestry technician and given 3 different eyedrops last week for redness and swelling around the eyes. The patient reports that symptoms did not improve and the swelling actually worsened over that time period. The patient reports redness in the eyes for approximately 10 days, this has been constant and worsening with no improvement with drop treatment. The patient also reports swelling around both eyelids, which has been consistent and worsening over the last several days. The patient reports some pain with eye movement, but no affect on visual acuity. REVIEW OF SYSTEMS: The review of systems including respiratory systems, cardiovascular systems, dermatologic systems are all negative. The patient denies fever, malaise, weight loss, rash, chest pain, headache, or shortness of breath. MEDICATIONS: Include, 1. Lipitor 10 mg daily. 2. Farxiga 10 mg daily. 3. Prozac 20 mg daily. 4. Norvasc 5 mg daily. 5. Breztri 2 puffs daily. 6. Vitamin D3 supplement. 7. Lasix 20 mg daily. 8. Remeron 15 mg daily. 9. Prevacid 30 mg daily. 10.K-Dur 10 mEq daily. 11.Zinc supplements. ALLERGIES: No known drug allergies. PAST MEDICAL HISTORY: Diabetes type 2 and hypertension. SOCIAL HISTORY: Current smoker. Also admits to marijuana use. FAMILY HISTORY: Noncontributory. PHYSICAL EXAMINATION: Ophthalmic exam reveals lid edema bilaterally. Pupils are equal, round, and reactive to light and accommodation. There is no afferent pupillary defect. Extraocular movements are full. The conjunctiva is injected 4+. There is congestion of the vasculature and some chemosis. The cornea is clear. The anterior chambers within normal limits. There is nuclear sclerotic cataract in the lens. Posterior examination is limited and reveals minimal diabetic retinopathy. ASSESSMENT AND PLAN: 1. Eyelid edema, bilateral. The edema is likely due to bacterial infection, presumably preseptal due to the findings of anterior swelling and injection with no septal or orbital signs. The pertinent negatives are no afferent pupillary defect, and no diplopia, and no extraocular movement deficiencies. The patient has received vancomycin and cefepime IV and this treatment has shown some improvement in the patient's symptoms over the last day or 2. the IV dosage and discharging home when appropriate on oral antibiotics. 2. Conjunctivitis, bilateral. The conjunctiva is severely infected and inflamed. This appears to be with preseptal cellulitis without conjunctivitis. This is likely bacterial. I recommend adding erythromycin ointment b.i.d. during hospital stay and at home. The severity of the injection may indicate an additional allergic response to some of the drops that were prescribed previous to admission. Intracranial vascular abnormality causing congestion and injection cannot be ruled out. However, typically other cranial nerves and symptoms would arise in such a case. This appears very anterior and is consistent with a preseptal cellulitis. I recommend that the patient followup in the office with an forestry technician approximately 1 week after discharge. Thank you for allowing me to participate in this patient's care. ANYA / LANCE: [id number] /
[2024-03-11] MEDS: CLINDAMYCIN 150 MG CAP PO SCH (10:55)
[2024-03-11 11:45] VITALS: PULSE 60
--- NOTE | 2024-03-11 22:56 | P.PN ---
Subjective Progress Note Date: 03/11/24 Principal diagnosis: Reason for follow-up is bilateral conjunctivitis and left orbital cellulitis Patient is a 69-year-old -Citizen Of [place] male with a past medical history significant for diabetes mellitus hypertension sleep apnea current everyday smoker, the patient has been dealing with eye infection for almost a month and has been treated with multiple eyedrops presented to hospital worsening swelling and redness to bilateral eyes especially on the left side patient did have a CT suggestive of orbital cellulitis. On today's evaluation that is 03/11/2024, Patient is afebrile patient is currently on room air and denies having any shortness of breath, the patient denies any chest pain or cough, the patient denies any nausea vomiting did not have any abdominal pain and no diarrhea, patient did have improvement to the redness as well as periorbital swelling especially to the left side mention feeling better . Patient did have white count 7.45 creatinine is 1.3 blood culture negative Objective - Vital Signs Vital signs: Vital Signs Temp 98.2 F 03/11/24 07:13 Pulse 60 03/11/24 11:48 Resp 16 03/11/24 08:00 BP 152/81 03/11/24 07:13 Pulse Ox 96 03/11/24 07:13 FiO2 Intake & Output 03/10/24 03/11/24 03/11/24 18:59 06:59 18:59 Intake Total 1072 591 Balance 1072 591 Intake: Oral 1072 591 Other: Voiding Method Toilet Toilet # Voids 1 2 # Bowel Movements 1 - Exam GENERAL DESCRIPTION: An elderly male lying in bed in no distress HEENT: Bilateral conjunctival redness left periorbital swelling has decreased in intensity RESPIRATORY SYSTEM: Unlabored breathing , decreased breath sounds at bases HEART: S1 S2 regular rate and rhythm , ABDOMEN: Soft , no tenderness EXTREMITIES: No edema feet - Labs CBC & Chem 7: 03/11/24 05:08 03/11/24 05:08 Labs: Abnormal Lab Results - Last 24 Hours (Table) 03/10/24 03/10/24 03/11/24 Range/Units 17:12 20:56 05:08 Hgb 12.4 L (13.0-17.0) g/dL Hct 39.1 L (39.6-50.0) % MCV 78.7 L (80.0-97.0) FL MCH 24.9 L (27.0-32.0) pg MCHC 31.7 L (32.0-37.0) g/dL RDW 16.5 H (11.5-14.5) % Anion Gap (4.00-12.00) mmol/L Est GFR (CKD-EPI) (>=60) BUN/Creatinine Ratio (12.00-20.00) Ratio POC Glucose (mg/dL) 134 H 139 H (70-110) mg/dL C-Reactive Protein (0.00-0.80) mg/dL 03/11/24 03/11/24 Range/Units 05:08 05:56 Hgb (13.0-17.0) g/dL Hct (39.6-50.0) % MCV (80.0-97.0) FL MCH (27.0-32.0) pg MCHC (32.0-37.0) g/dL RDW (11.5-14.5) % Anion Gap 12.30 H (4.00-12.00) mmol/L Est GFR (CKD-EPI) 59 L (>=60) BUN/Creatinine Ratio 9.15 L (12.00-20.00) Ratio POC Glucose (mg/dL) 115 H (70-110) mg/dL C-Reactive Protein 8.60 H (0.00-0.80) mg/dL Microbiology - Last 24 Hours (Table) 03/06/24 19:12 Blood Culture - Preliminary Blood 03/06/24 18:53 Blood Culture - Preliminary Blood Assessment and Plan (1) Orbital cellulitis Status: Acute Code(s): H05.019 - CELLULITIS OF UNSPECIFIED ORBIT SNOMED Code(s): 976461740 (2) Bilateral conjunctivitis Status: Acute Code(s): H10.9 - UNSPECIFIED CONJUNCTIVITIS SNOMED Code(s): 00121144295175467 Plan: 1patient presented to hospital with bilateral eye pain and swelling redness which is most remarkable in the left eye with pain on movement of the eyeball failing outpatient multiple liquid treatments with the eardrops no concern for orbital cellulitis on the basis of the CT and clinical findings 2patient did have clinical improvement with IV Vanco and cefepime, plan is to finish therapy with oral Augmentin and doxycycline prescription has been sent to the pharmacy with his kidney function not an ideal candidate for Bactrim DS and patient is on SSRI interacting with Zyvox is question concern answered Dictation was produced using [employer] software. please excuse any grammatical, word or spelling errors. Time with Patient: Less than 30
[2024-03-12] MEDS ORDERED: VANCOMYCIN TROUGH DUE 1 EACH MISC MISCELLANE ONE (07:00)
== END 2024-03-11 12:08 | disposition home or self-care (01) | DRG 603 ==
LOC: EC 14:53 → UNDOADMOB 18:21 → 6NMEDSUR 18:21 → OBSVTOIN 18:22 → 6NMEDSUR 18:22 → OBSVTOIN 03-07 06:44 → INTOOBSV 03-07 06:44 → UNDODISIN 03-11 12:08
PROVIDERS: ADMIT Family Medicine; ATTEND Family Medicine
DX: L03.213 Periorbital cellulitis (principal); H10.9 Unspecified conjunctivitis; F17.200 Nicotine dependence, unspecified, uncomplicated; F32.A Depression, unspecified; G47.33 Obstructive sleep apnea (adult) (pediatric); I71.21 Aneurysm of the ascending aorta, without rupture; K21.9 Gastro-esophageal reflux disease without esophagitis; J44.9 Chronic obstructive pulmonary disease, unspecified; E78.5 Hyperlipidemia, unspecified; I12.9 Hypertensive chronic kidney disease with stage 1 through stage 4 chronic kidney disease, or unspecified chronic kidney disease; E66.9 Obesity, unspecified; E11.22 Type 2 diabetes mellitus with diabetic chronic kidney disease; N18.9 Chronic kidney disease, unspecified; Z68.34 Body mass index [BMI] 34.0-34.9, adult; Z79.84 Long term (current) use of oral hypoglycemic drugs; Z79.899 Other long term (current) drug therapy; Z85.528 Personal history of other malignant neoplasm of kidney; Z90.5 Acquired absence of kidney
CPT/HCPCS: 36415; 70481; 71250; 80048; 80053; 80202; 82565; 85025; 85652; 86140; 87040; 93306; 94640; 94660; 96365; 96366; 96375; 99285

== ENCOUNTER → 2024-03-16 | Outpatient (CLI) | payer MEDICARE, OTHER ==
[2024-03-16 19:37] LABS: Prostate Specific Antigen 1.02 ng/mL (0.000-4.500)
[2024-03-17 12:39] LABS: APTT 59 Sec(s) (<43); APTT 1:1 Mix 50 Sec(s) (<43); DRVVT 1:1 Mix 42 Sec(s) (<44); Dilute Russell Viper Venom 52 Sec(s) (<44); Hexagonal Phase Neutralization Positive (Negative)
== END | disposition home or self-care (01) ==
LOC: LABWHC1 16:01
PROVIDERS: ATTEND Family Medicine
DX: B89 Unspecified parasitic disease (principal); R97.20 Elevated prostate specific antigen [PSA]; Z79.899 Other long term (current) drug therapy
CPT/HCPCS: 36415; 84153; 85613; 85730; 86038; 86160

== ENCOUNTER → 2024-03-22 | Outpatient (CLI) | payer MEDICARE, OTHER ==
[2024-03-22 18:07] LABS: Basophils # (A) 0.07 X 10*3/uL (0.00-0.10); Basophils % (A) 0.8 %; Eosinophils # (A) 0.16 X 10*3/uL (0.04-0.35); Eosinophils % (A) 1.8 %; HGB 13.7 g/dL (13.0-17.0); Lymphocytes # (A) 2.99 X 10*3/uL (0.90-5.00); Lymphocytes % (A) 34.1 %; MCH 24.3 pg (27.0-32.0); MCHC 31.1 g/dL (32.0-37.0); Mean Platelet Volume 10.3 FL (9.5-12.2); Monocytes # (A) 0.82 X 10*3/uL (0.20-1.00); Monocytes % (A) 9.4 %; NRBC Per 100 WBC 0 X 10*3/uL (0.00-0.01); Neutrophils # (A) 4.69 X 10*3/uL (1.80-7.70); Neutrophils % (A) 53.6 %; Platelet Count 412 X 10*3/uL (140-440); RBC 5.64 X 10*6/uL (4.40-5.60); RDW 16.4 % (11.5-14.5); WBC 8.76 X 10*3/uL (4.50-10.00)
[2024-03-22 20:23] LABS: ALT 28 U/L (10-49); AST 21 U/L (14-35); Albumin/Globulin Ratio 1.25 Ratio (1.60-3.17); Alkaline Phosphatase 124 U/L (41-126); Bilirubin, Conjugated <0.20 mg/dL (0.20-0.40); Globulin 3.2 g/dL (1.6-3.3); Rheumatoid Factor, Qnt <15 IU/mL (0-15); T4, Free (Free Thyroxine) 1.05 ng/dL (0.80-1.80); Total Bilirubin <0.2 mg/dL (0.3-1.2); Total Protein 7.2 g/dL (6.2-8.2)
== END | disposition home or self-care (01) ==
LOC: LABWHC1 12:10
PROVIDERS: ATTEND Ophthalmology
DX: H31 Other disorders of choroid (principal)
CPT/HCPCS: 36415; 80076; 82164; 84439; 84443; 84481; 85025; 86038; 86431; 86618

== ENCOUNTER 2024-05-25 07:05 | Emergency (ER) | payer MEDICARE, OTHER ==
[2024-05-25] MEDS ORDERED: KETOROLAC 15 MG/ML 1 ML VIAL ONE (08:12)
[2024-05-25] MEDS ORDERED: HYDROmorphone 0.5 MG/0.5 ML SYRINGE ONE ×2 (08:12→09:42)
[2024-05-25] MEDS ORDERED: ACET/COD 300 MG/30 MG STARTER PACK 6 TAB BTL PO ONE (12:16)
--- NOTE | 2024-06-20 12:11 | US ---
EXAMINATION TYPE: US venous doppler duplex LE LT DATE OF EXAM: 06/20/2024 11:08 AM COMPARISON: NONE CLINICAL INDICATION: Male, 69 years old with history of Pain; SIDE PERFORMED: Left TECHNIQUE: The lower extremity deep venous system is examined utilizing real time linear array sonog stephanie with graded compression, doppler sonography and color-flow sonography. VESSELS IMAGED: Common Femoral Vein Deep Femoral Vein Greater Saphenous Vein * Femoral Vein Popliteal Vein Small Saphenous Vein * Proximal Calf Veins (* superficial vessels) Grayscale, color doppler, spectral doppler imaging performed of the deep veins of the left lower extr emity. There is normal flow, compressibility, vascular waveforms. Left Leg: Negative for DVT IMPRESSION: No deep venous thrombosis of the left lower extremity.
--- NOTE | 2024-06-27 08:21 | XR ---
Site ID [facility] Patient Jared Wu ID [id number] Order # Procedure KNEE 3V (L) EXAMINATION TYPE: XR knee 3V LT DATE OF EXAM: 05/25/2024 10:05 AM CLINICAL INDICATION: Pain COMPARISON: THIS EXAM WAS READ DURING PACS DOWNTIME, NO PRIORS AVAILABLE. TECHNIQUE: XR knee 3V LT; examined in Frontal, lateral and oblique projections. FINDINGS: No evidence of any acute osseous pathology, or soft tissue swelling. There is a small to moderate joint effusion present. Tricompartmental osteophyte formation involving the femoral condyles , tibial plateau and patella. Severe joint space narrowing. A fabella is present. IMPRESSION: 1. No acute osseous pathology. 2. Moderate to severe tricompartmental osteoarthritic changes. 3. Small moderate joint effusion.
== END 2024-05-25 12:34 | disposition home or self-care (01) ==
LOC: EC 07:05
DX: M25.462 Effusion, left knee (principal)
CPT/HCPCS: 96374; 96375; 96376; 99283

== ENCOUNTER → 2024-07-12 | Outpatient (CLI) | payer MEDICARE, OTHER ==
--- NOTE | 2024-07-12 14:10 | XR ---
EXAMINATION TYPE: XR wrist limited RT DATE OF EXAM: 07/12/2024 CLINICAL HISTORY: pain TECHNIQUE: Frontal, lateral and oblique images of the right wrist are obtained. COMPARISON: None. FINDINGS: There is no acute fracture/dislocation evident. The joint spaces appear within normal limits. The o verlying soft tissue appears unremarkable. IMPRESSION: There is no acute fracture or dislocation seen. ICD 10 NO FRACTURE, INITIAL EVALUATION [facility], , 07/12/2024 2:08 PM
== END | disposition home or self-care (01) ==
LOC: RADXRMAIN 13:46
PROVIDERS: ATTEND Family Medicine
DX: S69.91XA Unspecified injury of right wrist, hand and finger(s), initial encounter

== ENCOUNTER 2024-07-31 11:52 | Day surgery (SDC) | payer MEDICARE, OTHER ==
[2024-07-26 15:01] VITALS: BMI 33.6
[2024-07-31 13:05] LABS: Glucose,Whole Blood 102 mg/dL (70-110)
[2024-07-31] MEDS: IV FLUID CONTINUATION 1,000 ML IV ONE (13:05)
[2024-07-31] MEDS: LACTATED RINGERS 1,000 ML IV SCH (13:07)
[2024-07-31 13:09] VITALS: TEMP 97.7
[2024-07-31] MEDS ORDERED: PROPOFOL 10 MG/ML 20 ML VIAL IV ONE (13:42)
--- NOTE | 2024-07-31 13:46 | P.GSHP ---
History of Present Illness H&P Date: 07/31/24 Chief Complaint: Diarrhea This a 69-year-old male who presents today for colonoscopy. Patient had issues with diarrhea. Past Medical History Past Medical History: Asthma, COPD, Diabetes Mellitus, GERD/Reflux, Hyperlipidemia, Hypertension, Osteoarthritis (OA), Sleep Apnea/CPAP/BIPAP Additional Past Medical History / Comment(s): CPAP use. RT KIDNEY CANCER History of Any Multi-Drug Resistant Organisms: None Reported Additional Past Surgical History / Comment(s): Kidney MASS REMOVED RT KIDNEY, REPAIR DETACHED RETINA RT EYE, COLONOSCOPY, Past Anesthesia/Blood Transfusion Reactions: No Reported Reaction Smoking Status: Current every day smoker - Past Family History Mother Family Medical History: Cancer, Diabetes Mellitus Father Family Medical History: Coronary Artery Disease (CAD), Myocardial Infarction (RI) Additional Family Medical History / Comment(s): Biological father in his 30s of a myocardial infarction Medications and Allergies Home Medications Medication Instructions Recorded Confirmed Type ALPRAZolam [Xanax] 1 mg PO HS 12/04/22 07/31/24 History Atorvastatin [Lipitor] 10 mg PO DAILY 12/04/22 07/31/24 History Dapagliflozin Propanediol [Farxiga] 10 mg PO DAILY 12/04/22 07/31/24 History FLUoxetine HCL [PROzac] 20 mg PO HS 12/04/22 07/31/24 History amLODIPine [Norvasc] 5 mg PO DAILY 12/04/22 07/31/24 History Budesonide/Glycopyr/Formoterol 2 puff INHALATION RT-BID 03/06/24 07/26/24 History [Breztri Aerosphere Inhaler] Cholecalciferol (Vitamin D3) 50 mcg PO DAILY 03/06/24 07/31/24 History [Vitamin D3 (50 Mcg = 2000 Iu)] Cyanocobalamin (Vitamin B-12) 1,000 mcg PO DAILY 03/06/24 07/31/24 History [Vitamin B-12] Lansoprazole [Prevacid] 30 mg PO DAILY 03/06/24 07/31/24 History Mirtazapine [Remeron] 15 mg PO HS 03/06/24 07/31/24 History Potassium Chloride ER [K-Dur 10] 10 meq PO DAILY 03/06/24 07/31/24 History Zinc Gluconate [Zinc] 50 mg PO DAILY 03/06/24 07/31/24 History Ipratropium-Albuterol Nebulize 3 ml INHALATION RT-QID 30 Days 03/10/24 07/31/24 Rx [Duoneb 0.5 mg-3 mg/3 ml Soln] #120 each Ibuprofen [Motrin Ib] 800 mg PO HS PRN 07/26/24 07/31/24 History Allergies Allergy/AdvReac Type Severity Reaction Status Date / Time No Known Allergies Allergy Verified 07/31/24 12:47 Surgical - Exam Vital Signs Temp Pulse Resp BP Pulse Ox 97.7 F 65 18 115/58 98 07/31/24 13:07 07/31/24 13:07 07/31/24 13:07 07/31/24 13:07 07/31/24 13:07 - General well developed, well nourished, no distress - Eyes PERRL - ENT normal pinna, normal nares, normal mucosa - Neck no masses - Respiratory normal expansion - Cardiovascular Rhythm: regular - Abdomen Abdomen: soft, non tender Assessment and Plan Assessment: Diarrhea. Will perform colonoscopy
--- NOTE | 2024-07-31 13:59 | P.OP ---
Date of Procedure: 07/31/24 Preoperative Diagnosis: Diarrhea Postoperative Diagnosis: Cecal mass Procedure(s) Performed: Colonoscopy Anesthesia: MAC Surgeon: Tio Yousif Pathology: other (Cecal mass) Condition: stable Disposition: PACU Description of Procedure: The patient was placed on the o table in the lateral position. He received IV sedation. Digital rectal exam was performed. This revealed no abnormalities. The flexible colonoscope was then placed patient anus and passed throughout the entire colon. The ileocecal valve was visualized. On the ileocecal valve there was an inflammatory mass seen. This was biopsied with a cold forcep. The remainder of the ascending colon, transverse colon appeared normal. In the descending sigmoid colon this was normal. Scope was brought back to the rectum this appeared normal. Scope withdrawn for the patient.
[2024-07-31 14:20] VITALS: BP 115/71; PULSE 56; RESP 18
== END 2024-07-31 14:36 | disposition home or self-care (01) ==
LOC: ORWHC2ENDO 11:52
PROVIDERS: ATTEND Surgery
CPT/HCPCS: 45380; 88305

== ENCOUNTER → 2024-12-14 | Outpatient (CLI) | payer MEDICARE, OTHER ==
[2024-12-15 02:14] LABS: HCT 40.3 % (39.6-50.0); HGB 12.3 g/dL (13.0-17.0); MCH 22.1 pg (27.0-32.0); MCHC 30.5 g/dL (32.0-37.0); MCV 72.5 FL (80.0-97.0); Mean Platelet Volume 10.1 FL (9.5-12.2); NRBC Per 100 WBC 0 X 10*3/uL (0.00-0.01); Platelet Count 407 X 10*3/uL (140-440); RBC 5.56 X 10*6/uL (4.40-5.60); RDW 20.3 % (11.5-14.5); WBC 6.97 X 10*3/uL (4.50-10.00)
[2024-12-15 02:26] LABS: BUN/Creat Ratio 12.29 Ratio (12.00-20.00); Blood Urea Nitrogen 17.2 mg/dL (9.0-27.0); Carbon Dioxide 25.5 mmol/L (21.6-31.8); Chloride 103 mmol/L (96-109); Glucose 74 mg/dL (70-110); Potassium 4.6 mmol/L (3.5-5.5); Sodium 139 mmol/L (135-145)
[2024-12-15 02:27] LABS: ALT 15 U/L (10-49); AST 16 U/L (14-35); Albumin 4.2 g/dL (3.8-4.9); Albumin/Globulin Ratio 1.24 Ratio (1.60-3.17); Alkaline Phosphatase 124 U/L (41-126); Calcium 9.1 mg/dL (8.7-10.3); Globulin 3.4 g/dL (1.6-3.3); Total Bilirubin 0.3 mg/dL (0.3-1.2); Total Protein 7.6 g/dL (6.2-8.2)
[2024-12-15 04:01] LABS: Basophils # (A) 0.08 X 10*3/uL (0.00-0.10); Basophils % (A) 1.1 %; Eosinophils # (A) 0.16 X 10*3/uL (0.04-0.35); Eosinophils % (A) 2.3 %; Lymphocytes # (A) 2.82 X 10*3/uL (0.90-5.00); Lymphocytes % (A) 40.5 %; Microcytosis (M) 2+ (None Seen); Monocytes # (A) 0.66 X 10*3/uL (0.20-1.00); Monocytes % (A) 9.5 %; Neutrophils # (A) 3.24 X 10*3/uL (1.80-7.70); Neutrophils % (A) 46.5 %
== END | disposition home or self-care (01) ==
LOC: LABWHC1 16:15
PROVIDERS: ATTEND Family Medicine
DX: I71.21 Aneurysm of the ascending aorta, without rupture (principal); N18.30 Chronic kidney disease, stage 3 unspecified
CPT/HCPCS: 36415; 80053; 85025